=== PATIENT | female | born 1930 | race Caucasian/White ===

== ENCOUNTER 2016-05-16 22:47 | Observation (INO) | payer MEDICARE, OTHER ==
[2016-05-16 23:55] LABS: Basophils # (A) 0.2 k/uL (0-0.2); Basophils % (A) 2 %; CHCM 33.2; Eosinophils % (A) 0 %; HCT 42.4 % (34.0-46.0); HDW 2.15; Luc % (Auto) 1; Lymphocytes % (A) 12 %; MCH 29.9 pg (25.0-35.0); Monocytes # (A) 0.7 k/uL (0-1.0); Monocytes % (A) 9 %; Neutrophils # (A) 6.4 k/uL (1.3-7.7); Neutrophils % (A) 76 %; RBC 4.66 m/uL (3.80-5.40); RDW 13.7 % (11.5-15.5); WBC 8.4 k/uL (3.8-10.6); WBC (Perox) 8.23
[2016-05-17 00:05] LABS: ALT 29 U/L (9-52); AST 18 U/L (14-36); Alkaline Phosphatase 54 U/L (38-126); Anion Gap 11 mmol/L; Blood Urea Nitrogen 15 mg/dL (7-17); Calcium 9.9 mg/dL (8.4-10.2); Carbon Dioxide 32 mmol/L (22-30); Chloride 99 mmol/L (98-107); Glucose 124 mg/dL (74-99); Non-African American GFR(MDRD) >60 (>60 ml/min/1.73 sqM); Potassium 4.2 mmol/L (3.5-5.1); Sodium 142 mmol/L (137-145); Total Bilirubin 0.5 mg/dL (0.2-1.3); Total Protein 7.5 g/dL (6.3-8.2)
[2016-05-17] MEDS ORDERED: PANTOPRAZOLE 40 MG/10 ML VIAL IVP STA (00:07)
[2016-05-17] MEDS ORDERED: ONDANSETRON 4 MG/2 ML VIAL IVP STA (00:07)
[2016-05-17 00:08] LABS: MCV 90.8 fL (80.0-100.0)
[2016-05-17] MEDS ORDERED: SODIUM CHLORIDE 0.9% 1,000 ML IV STA ×2 (00:14→00:17)
[2016-05-17] MEDS ORDERED: SODIUM CHLORIDE 0.9% 1,000 ML IV ONE (00:26)
--- NOTE | 2016-05-17 00:26 | ED ---
General Adult HPI - General Chief complaint: GI Bleed Stated complaint: Vomiting Time Seen by Provider: 05/16/16 23:43 Source: EMS, RN notes reviewed, old records reviewed Mode of arrival: EMS Limitations: no limitations - History of Present Illness Initial comments: This is an 85-year-old female the ER for evaluation. Patient has a for evaluation of upper GI bleeding coffee-ground emesis. Severe coffee-ground emesis, retching, weakness. Patient does have history of exact similar symptoms in the past, currently not on any blood thinning medication. Patient does refuse transfusion secondary to blood counts. - Related Data Home Medications Medication Instructions Recorded Confirmed Albuterol Nebulized [Ventolin 2.5 mg INHALATION RT-Q6H PRN 01/04/16 05/16/16 Nebulized] Pravastatin Sodium [Pravachol] 20 mg PO HS 01/04/16 05/16/16 Sennosides [Senna] 17.2 mg PO HS 01/04/16 05/16/16 Carbidopa/Levodopa/Entacapone 1 tab PO BID 04/08/16 05/16/16 [Hghlxlubt-Zhenmeng-Icbl 200 mg] Ensure 1 can PO DAILY 04/08/16 05/16/16 HYDROcodone/APAP 7.5-325MG [[place] 1 tab PO Q8H PRN 04/08/16 05/16/16 7.5-325] Lisinopril [Zestril] 10 mg PO DAILY 05/16/16 05/16/16 Phenergan 25mg/Ml 12.5 mg IM Q6H PRN 05/16/16 05/16/16 Previous Rx's Medication Instructions Recorded Ferrous Sulfate [Feosol] 325 mg PO BID #60 tab 01/28/16 Citalopram Hydrobromide [CeleXA] 10 mg PO QAM tab 04/10/16 Diazepam [Valium] 7.5 mg PO HS #20 tab 04/10/16 Pantoprazole [Protonix] 40 mg PO AC-BID tablet. 04/10/16 Allergies Allergy/AdvReac Type Severity Reaction Status Date / Time baclofen Allergy Unknown Verified 05/16/16 22:50 aspirin AdvReac Unknown Verified 05/16/16 22:50 Review of Systems ROS Statement: Those systems with pertinent positive or pertinent negative responses have been documented in the HPI. ROS Other: All systems not noted in ROS Statement are negative. Past Medical History Past Medical History: CVA/TIA, GERD/Reflux, GI Bleed, Hyperlipidemia, Hypertension, Osteoarthritis (OA) Additional Past Medical History / Comment(s): Pt recently admitted 01/05/16 with GI bleed, past GI bleed 2006, PUD, hiatal hernia, cerebral palsy,MACULAR DEGENERATION bilaterally, TIA, URINARY INCONT-WEARS A BRIEF, dysphagia IF HURRIED . CONSTIPATION, generalized weakness, current L lower leg fracture-has immobilizer on. History of Any Multi-Drug Resistant Organisms: None Reported Past Surgical History: Orthopedic Surgery Additional Past Surgical History / Comment(s): EGD/COLONOSCOPY, PAST MEDICAL HX STATED HEART CATH-PT DID'NT RECALL THIS, BRAIN SX R/T CEREBAL PALSEY" Past Anesthesia/Blood Transfusion Reactions: No Reported Reaction Past Psychological History: Anxiety, Depression Additional Psychological History / Comment(s): P resides at [facility]. She states she is mostly in bed and occasionally is assisted into a chair. She needs assist with all ADLs. She has dysphagia if she is hurried while eating. She is on a regular diet and needs a straw and lid with liquids. Smoking Status: Never smoker Past Alcohol Use History: None Reported Past Drug Use History: None Reported - Past Family History Mother Additional Family Medical History / Comment(s): MOTHER AT AGE 36 FROM TB Father Family Medical History: Dementia Brother(s) Family Medical History: Dementia General Exam Limitations: no limitations General appearance: alert, in no apparent distress Head exam: Present: atraumatic, normocephalic, normal inspection Eye exam: Present: normal appearance, PERRL, EOMI. Absent: scleral icterus, conjunctival injection, periorbital swelling ENT exam: Present: normal exam, mucous membranes moist Neck exam: Present: normal inspection. Absent: tenderness, meningismus, lymphadenopathy Respiratory exam: Present: normal lung sounds bilaterally. Absent: respiratory distress, wheezes, rales, rhonchi, stridor Cardiovascular Exam: Present: normal rhythm, tachycardia, normal heart sounds. Absent: systolic murmur, diastolic murmur, rubs, gallop, clicks GI/Abdominal exam: Present: soft, normal bowel sounds. Absent: distended, tenderness, guarding, rebound, rigid Rectal exam: Present: heme (+) stool, black stool Extremities exam: Present: normal inspection, full ROM, normal capillary refill. Absent: tenderness, pedal edema, joint swelling, calf tenderness Back exam: Present: normal inspection Neurological exam: Present: alert, oriented X3, CN II-XII intact Psychiatric exam: Present: normal affect, normal mood Skin exam: Present: warm, dry, intact, normal color. Absent: rash Course Vital Signs 05/16/16 22:49 Temperature 98.4 F Pulse Rate 111 H Respiratory 18 Rate Blood Pressure 159/96 O2 Sat by Pulse 93 L Oximetry EKG Findings - EKG Comments: EKG Findings:: EKG shows sinus tachycardia rate 121, WV 140, QRS 78, QTC 460 Medical Decision Making - Medical Decision Making 85 female here for reevaluation [place], history of upper GI bleed. Patient related a with coffee-ground emesis, weakness, elevated heart rate. Patient will be admitted for evaluation by GI, patient is no transfusion secondary to muslim preferences. - Lab Data Result diagrams: 05/16/16 23:10 05/16/16 23:10 Lab Results 05/16/16 05/16/16 05/16/16 Range/Units 23:10 23:10 23:10 WBC 8.4 (3.8-10.6) k/uL RBC 4.66 (3.80-5.40) m/uL Hgb 14.0 D (11.4-16.0) gm/dL Hct 42.4 (34.0-46.0) % MCV 90.8 D (80.0-100.0) fL MCH 29.9 (25.0-35.0) pg MCHC 33.0 (31.0-37.0) g/dL RDW 13.7 (11.5-15.5) % Plt Count 278 (150-450) k/uL Neutrophils % 76 % Lymphocytes % 12 % Monocytes % 9 % Eosinophils % 0 % Basophils % 2 % Neutrophils # 6.4 (1.3-7.7) k/uL Lymphocytes # 1.0 (1.0-4.8) k/uL Monocytes # 0.7 (0-1.0) k/uL Eosinophils # 0.0 (0-0.7) k/uL Basophils # 0.2 (0-0.2) k/uL APTT 22.2 (22.0-30.0) sec Sodium 142 (137-145) mmol/L Potassium 4.2 (3.5-5.1) mmol/L Chloride 99 (98-107) mmol/L Carbon Dioxide 32 H (22-30) mmol/L Anion Gap 11 mmol/L BUN 15 (7-17) mg/dL Creatinine 0.57 (0.52-1.04) mg/dL Est GFR (MDRD) Af Amer >60 (>60 ml/min/1.73 sqM) Est GFR (MDRD) Non-Af >60 (>60 ml/min/1.73 sqM) Glucose 124 H (74-99) mg/dL Calcium 9.9 (8.4-10.2) mg/dL Total Bilirubin 0.5 (0.2-1.3) mg/dL AST 18 (14-36) U/L ALT 29 (9-52) U/L Alkaline Phosphatase 54 (38-126) U/L Total Protein 7.5 (6.3-8.2) g/dL Albumin 4.3 (3.5-5.0) g/dL Critical Care Time Critical Care Time: Yes Total Critical Care Time: 31 Disposition Clinical Impression: Upper GI bleed, Coffee ground emesis, Anemia, Gastritis Disposition: ADMITTED IP TO THIS [facility] Condition: Critical Referrals: Jaron Carlos MD [Primary Care Provider] - 1-2 days
[2016-05-17] MEDS ORDERED: SODIUM CHLORIDE 0.9% 500 ML IV STA (00:28)
[2016-05-17] MEDS ORDERED: ONDANSETRON 4 MG/2 ML VIAL IVP PRN (00:28)
[2016-05-17 00:30] LABS: Creatine Kinase 20 U/L (30-135)
[2016-05-17 00:43] LABS: Creatine Kinase MB <0.2 ng/mL (0.0-2.4); Troponin I <0.012 ng/mL (0.000-0.034)
[2016-05-17 08:09] VITALS: RESP 16
[2016-05-17] MEDS ORDERED: PANTOPRAZOLE 40 MG/10 ML VIAL IVP SCH (09:00)
--- NOTE | 2016-05-17 09:48 | P.CONS ---
History of Present Illness - Reason for Consult Consult date: 05/17/16 Upper GI bleed Requesting physician: Becca Corbin - History of Present Illness 85-year-old female [employer] with a history of cerebral palsy resident at retirement, hyperlipidemia, hypertension, macular degeneration, large hiatal hernia, anxiety, depression, CVA, and GERD. Patient requested for coffee -ground emesis. She is known to the GI service and was evaluated January 2016 for coffee-ground emesis. CT abdomen at that time reported large hiatal hernia. She underwent EGD evaluation in January 2016 with findings of gastritis esophagitis and large hiatal hernia no evidence of peptic ulcer disease. Admitted with recurrence of coffee ground emesis after eating a meal. Receiving reports no episodes of hematemesis, hematochezia, or melena since admission. Denies abdominal pain. Colonoscopy many years ago to her memory was normal. Admission hemoglobin 14.0. Platelet 278. BUN 15. Creatinine 0.5. Review of Systems All systems: negative (See HPI) Past Medical History Past Medical History: CVA/TIA, GERD/Reflux, GI Bleed, Hyperlipidemia, Hypertension, Osteoarthritis (OA) Additional Past Medical History / Comment(s): Pt recently admitted 01/05/16 with GI bleed, past GI bleed 2006, PUD, hiatal hernia, cerebral palsy,MACULAR DEGENERATION bilaterally, TIA, URINARY INCONT-WEARS A BRIEF, dysphagia IF HURRIED . CONSTIPATION, generalized weakness, current L lower leg fracture. History of Any Multi-Drug Resistant Organisms: None Reported Past Surgical History: Orthopedic Surgery Additional Past Surgical History / Comment(s): EGD/COLONOSCOPY, PAST MEDICAL HX STATED HEART CATH-PT DID'NT RECALL THIS, BRAIN SX R/T CEREBAL PALSEY" Past Anesthesia/Blood Transfusion Reactions: No Reported Reaction Past Psychological History: Anxiety, Depression Additional Psychological History / Comment(s): P resides at [facility]. She states she is mostly in bed and occasionally is assisted into a chair. She needs assist with all ADLs. She has dysphagia if she is hurried while eating. She is on a regular diet and needs a straw and lid with liquids. Smoking Status: Never smoker Past Alcohol Use History: None Reported Past Drug Use History: None Reported - Past Family History Mother Additional Family Medical History / Comment(s): MOTHER AT AGE 36 FROM TB Father Family Medical History: Dementia Brother(s) Family Medical History: Dementia Medications and Allergies Home Medications Medication Instructions Recorded Confirmed Type Albuterol Nebulized [Ventolin 2.5 mg INHALATION RT-Q8H PRN 01/04/16 05/17/16 History Nebulized] Pravastatin Sodium [Pravachol] 20 mg PO HS 01/04/16 05/17/16 History Sennosides [Senna] 17.2 mg PO HS 01/04/16 05/17/16 History Carbidopa/Levodopa/Entacapone 1 tab PO BID 04/08/16 05/17/16 History [Kwhotzpal-Kjscqolx-Qckd 200 mg] Ensure 1 can PO BID-W/MEALS 04/08/16 05/17/16 History HYDROcodone/APAP 7.5-325MG [[place] 1 tab PO Q8H PRN 04/08/16 05/17/16 History 7.5-325] Lisinopril [Zestril] 10 mg PO DAILY 05/16/16 05/17/16 History Phenergan 25mg/Ml 12.5 mg IM Q6H PRN 05/16/16 05/17/16 History Allergies Allergy/AdvReac Type Severity Reaction Status Date / Time baclofen Allergy Unknown Verified 05/17/16 09:03 aspirin AdvReac Unknown Verified 05/17/16 09:03 Physical Exam Vitals: Vital Signs Temp Pulse Pulse Resp BP BP Pulse Ox 05/17/16 07:00 99 F 93 16 96/52 86 L 05/17/16 02:44 98.7 F 92 20 124/80 95 05/17/16 01:34 98.2 F 90 18 113/67 92 L 05/17/16 00:28 107 H 18 154/88 94 L Intake and Output 05/16/16 05/17/16 05/17/16 22:59 06:59 14:59 Intake Total 400 Balance 400 Intake: IV 400 Sodium Chloride 0.9% 1, 400 000 ml @ 100 mls/hr IV . Q10H ONE Rx#:[id number] Other: Voiding Method Bedpan Diaper General appearance: The patient is alert, oriented, in no acute distress. HET: Head is normocephalic and atraumatic. Pupils are equal and reactive. Oropharynx is clear without lesions. Neck: Supple without lymphadenopathy. Trachea midline. Heart: S1 S2. Regular rate and rhythm. Lungs: No crackles or wheezes are heard. Abdomen: Soft, nontender, nondistended with bowel sounds. No peritoneal signs. No palpable organomegaly or masses. Extremities: Normal skin color and turgor. No cyanosis, rash, ulceration, clubbing, or edema. Radial and pedal pulses are 2/4 bilaterally. Neurological: No focal deficits. Strength and sensation are grossly intact. Results CBC & Chem 7: 05/16/16 23:10 05/16/16 23:10 Assessment and Plan (1) Coffee ground emesis Narrative/Plan: 85-year-old female with a history of large hiatal hernia receiving oral iron therapy presents with acute coffee-ground emesis status post EGD January 2016 with no evidence of active upper GI bleed esophagitis and large hiatal hernia GE junction located at 33 cm. Possible gastritis esophagitis Miranda-Biggs tear or Darryl erosions. Peptic ulcer disease felt to be less likely but cannot be excluded. Status: Acute (2) Upper GI bleed Status: Acute (3) Hiatal hernia Status: Chronic Plan: Recommendations: 1. Admission hemoglobin was 14.0 we'll await repeat CBC today. Continue clear liquids and GI prophylaxis. Will consider EGD evaluation based on her clinical course but for now continue to observe with conservative measures. Thank you for this kind referral and the opportunity to participate in the care of your patient. This consultation was discussed with Dr. Perry. The impression and plan of care have been directed as dictated.
[2016-05-17] MEDS ORDERED: ALBUTEROL NEBULIZED 2.5 MG/3 ML INHALATION PRN (10:04)
[2016-05-17] MEDS ORDERED: PROMETHAZINE INJ 25 MG/ML 1 ML VIAL IM PRN (10:04)
[2016-05-17] MEDS ORDERED: ENTACAPONE 200 MG TAB PO SCH ×2 (10:15→11:27)
[2016-05-17] MEDS ORDERED: CARBIDOPA-LEVODOPA ER 50-200MG 1 EACH TABLET.ER PO SCH (10:15)
--- NOTE | 2016-05-17 10:40 | XR ---
EXAMINATION TYPE: XR chest 1V DATE OF EXAM: 05/17/2016 10:35 AM COMPARISON: Prior chest x-ray 26 February 2015 second of April 2016 HISTORY: Cough and congestion TECHNIQUE: Single frontal view of the chest is obtained. FINDINGS: Retrocardiac density with central lucency compatible with hiatal hernia. Patient is rotate d. Nodular density in the apex on the right is not significantly changed and is a calcified granuloma . Heart size is accentuated. No pneumothorax or pleural effusion. There are overlying cardiac leads. Minimal patchy basilar density is noted. There is apical pleural thickening. IMPRESSION: Probable old granulomatous disease. Accentuation of heart size may be due to rotation. T here may be basilar atelectasis, hiatal hernia. Correlate to exclude pneumonia and follow-up as indic ated.
--- NOTE | 2016-05-17 10:55 | DS ---
DATE OF ADMISSION: 05/17/2016 DATE OF DISCHARGE: Patient is an 85-year-old [employer] and history of cerebral palsy, a resident of [facility] with chronic contractures, came in with coffee-ground emesis, about a couple times yesterday and patient does have multiple other medical problems. Apparently a CT of the abdomen showed large hiatal hernia. Patient underwent EGD evaluation on January 2016, found to have esophagitis and gastritis and emesis resolved at this point of time. Will start her back on the diet and if she is able to tolerate, later today patient will be discharged back to [facility]. Her hemoglobin remains stable at 14 and patient does not have any hematochezia, melena. Patient denied any fever or chills. Patient denied any cough, runny nose. REVIEW OF SYSTEMS: CARDIOVASCULAR: No chest pain, no orthopnea, no PND, no palpitations. PULMONARY: Denied any shortness of breath. No cough or hemoptysis. GASTROINTESTINAL: As described in HPI. Patient denied any abdominal pain at this point of time. Apparently, she had epigastric abdominal pain yesterday. NEUROLOGIC: No headaches, no weakness, no numbness. PAST MEDICAL HISTORY: Significant for CVA, TIA, gastroesophageal reflux disease, GI bleed, hyperlipidemia, hypertension, osteoarthritis and patient had a recent admission in the month of January for GI bleed, Orthopedic surgery, anxiety, depression and cerebral. SOCIAL HISTORY: Denied any smoking, alcohol abuse or any drug abuse. FAMILY HISTORY: Father had dementia, brother had dementia. Home medications include: 1. Albuterol. 2. Pravastatin. 3. Senokot. 4. Carbidopa levodopa. 5. Hydrocodone. 6. Acetaminophen. 7. Lisinopril. 8. Phenergan. Patient is probably on carbidopa levodopa for contractures maybe. PHYSICAL EXAMINATION: VITAL SIGNS: Temperature 99.0, pulse of 93, respiratory rate of 16, blood pressure is 96/52, because of which lisinopril will be discontinued. Saturating at 86% on room air, will recheck that. I believe this is not a real saturations, so will to recheck the saturations. There were 95% on room air. GENERAL EXAMINATION: Patient is alert and oriented alert x2 to 3. Patient does have chronic contractures. HEENT: Pupils are round and equally reacting to light. EOMI. No scleral icterus. No conjunctival pallor. Normocephalic, atraumatic. No pharyngeal erythema. No thyromegaly. CARDIOVASCULAR: S1 and S2 present. No murmurs, rubs, or gallops. PULMONARY: Chest is clear to auscultation, no wheezing or crackles. ABDOMEN: Soft, nontender, nondistended, normoactive bowel sounds. No palpable organomegaly. MUSCULOSKELETAL: No joint swelling or deformity. EXTREMITIES: No cyanosis, clubbing, or pedal edema. NEUROLOGICAL: Gross neurological examination did not reveal any focal deficits. SKIN: No rashes. LABORATORY DATA: CBC, CMP, no significant abnormality was appreciated except for mildly elevated bicarbonate of 32. ASSESSMENT AND PLAN: 1. Possible upper gastrointestinal bleed secondary to hiatal hernia and coffee-ground emesis secondary to that. Patient's symptoms already improved. Will watch her a few more hours and start her back on diet and Gastroenterology evaluated the patient and they not recommending any further intervention or any procedure at this point of time. 2. History of cerebrovascular accident. 3. Hypertension. 4. Hyperlipidemia. 5. Chronic contractures secondary to cerebral palsy. Not sure why patient is on carbidopa levodopa, I did not see any documented Parkinson's even in the previous dictations. PLAN: Continue with present medications. Advance the diet, possibility of discharge tomorrow. Patient will follow with Dr. Carlos in the [facility]. Activity as per the facility. Cardiac diet. Patient's lisinopril was discontinued. Please refer to my depart summary for the details of discharge medications. Lisinopril was discontinued because of her low blood pressure. Patient was started on Maalox.
[2016-05-17 14:52] VITALS: BP 122/70; PULSE 82; TEMP 97.5
[2016-05-17] MEDS ORDERED: NON-FORMULARY DRUG (Ensure 1 CAN) PO SCH (17:30)
[2016-05-17] MEDS ORDERED: FERROUS SULFATE 325 MG TAB PO SCH (17:30)
[2016-05-17] MEDS ORDERED: PRAVASTATIN SODIUM 20 MG TAB PO SCH (21:00)
[2016-05-17] MEDS ORDERED: SENNOSIDES 8.6 MG TAB PO SCH (21:00)
--- NOTE | 2016-06-05 14:19 | HP ---
DATE OF ADMISSION: 05/17/2016 Patient is admitted and discharged on the same day. Please refer to my dictation of discharge summary for further details of H&P. That dictation is both H&P and discharge summary. CONRADO
== END 2016-05-17 16:10 ==
LOC: EC 22:47 → 5MS5E 05-17 00:24 → INTOOBSV 05-17 00:24
PROVIDERS: ADMIT Hospitalist; ATTEND Hospitalist
DX: K44.9 Diaphragmatic hernia without obstruction or gangrene (principal); K92.2 Gastrointestinal hemorrhage, unspecified; K92.0 Hematemesis; K21.0 Gastro-esophageal reflux disease with esophagitis; D50.9 Iron deficiency anemia, unspecified; E78.5 Hyperlipidemia, unspecified; G80.9 Cerebral palsy, unspecified; H35.30 Unspecified macular degeneration; I10 Essential (primary) hypertension; M19.90 Unspecified osteoarthritis, unspecified site; Z86.73 Personal history of transient ischemic attack (TIA), and cerebral infarction without residual deficits; Z87.11 Personal history of peptic ulcer disease
CPT/HCPCS: 36415; 93005; 80053; 82550; 82553; 84484; 85025; 85730; 71010; 99291; 96365; 96375 ×2; G0378; J2405; J0696; C9113

== ENCOUNTER 2016-05-21 21:18 | Observation (INO) | payer MEDICARE, OTHER ==
[2016-05-21] MEDS ORDERED: ONDANSETRON 4 MG/2 ML VIAL IVP STA (21:24)
[2016-05-21] MEDS ORDERED: PANTOPRAZOLE 40 MG/10 ML VIAL IVP STA (21:24)
[2016-05-21] MEDS ORDERED: SODIUM CHLORIDE 0.9% 1,000 ML IV STA (21:24)
[2016-05-21 21:58] LABS: Basophils % (A) 0 %; CH 30.1; CHCM 33.7; Eosinophils # (A) 0.1 k/uL (0-0.7); Eosinophils % (A) 1 %; HCT 39.5 % (34.0-46.0); HDW 2.26; Luc # (Auto) 0.07; Luc % (Auto) 1; Lymphocytes # (A) 1.2 k/uL (1.0-4.8); Lymphocytes % (A) 13 %; MCH 29.6 pg (25.0-35.0); MCV 89.6 fL (80.0-100.0); Mean Platelet Volume 8.1; Monocytes # (A) 0.4 k/uL (0-1.0); Monocytes % (A) 4 %; Neutrophils # (A) 7.1 k/uL (1.3-7.7); Neutrophils % (A) 80 %; RBC 4.41 m/uL (3.80-5.40); RDW 13.5 % (11.5-15.5); WBC 8.9 k/uL (3.8-10.6); WBC (Perox) 9.49
[2016-05-21 22:20] LABS: Amylase 73 U/L (30-110); Anion Gap 13 mmol/L; Calcium 9.4 mg/dL (8.4-10.2); Carbon Dioxide 27 mmol/L (22-30); Chloride 103 mmol/L (98-107); Glucose 128 mg/dL (74-99); Non-African American GFR(MDRD) >60 (>60 ml/min/1.73 sqM); Sodium 143 mmol/L (137-145); Total Bilirubin 0.8 mg/dL (0.2-1.3)
[2016-05-21 22:23] LABS: ALT 29 U/L (9-52); AST 20 U/L (14-36); Blood Urea Nitrogen 12 mg/dL (7-17); Potassium 4.2 mmol/L (3.5-5.1)
[2016-05-21 22:24] LABS: Alkaline Phosphatase 48 U/L (38-126)
--- NOTE | 2016-05-21 22:35 | XR ---
EXAMINATION TYPE: XR chest 2V DATE OF EXAM: 05/21/2016 10:25 PM COMPARISON: 05/17/2016 HISTORY: Abdominal pain and vomiting TECHNIQUE: Frontal and lateral views of the chest are obtained. FINDINGS: There is no heart failure nor confluent pneumonic infiltrate. Costophrenic angles are bo r. Thoracic aorta is atheromatous. There is significant arthritic disease in the right shoulder. IMPRESSION: No active cardiopulmonary disease. No change. Atheromatous aorta.
--- NOTE | 2016-05-21 22:37 | XR ---
EXAMINATION TYPE: XR KUB DATE OF EXAM: 05/21/2016 10:25 PM COMPARISON: 01/04/2016 HISTORY: Abdominal pain TECHNIQUE: Single view FINDINGS: There is no sign of intestinal obstruction or pneumoperitoneum. Fecal pattern is normal. Th ere is no sign of a mass. There is mild lumbar dextroscoliosis. There is a 2 cm curvilinear calcifica tion over the left mid abdomen. IMPRESSION: Nonacute abdomen. There is calcification over the left kidney related to a renal cyst wit h wall calcification demonstrated on old CT scan of 01/04/2016. No change.
[2016-05-22] MEDS ORDERED: METOCLOPRAMIDE 5 MG/ML 2 ML VIAL IVP STA ×2 (00:05→00:06)
[2016-05-22] MEDS ORDERED: NALOXONE 0.4 MG/ML 1 ML VIAL IV PRN (00:10)
[2016-05-22] MEDS ORDERED: ACETAMINOPHEN TAB 325 MG TAB PO PRN (00:10)
[2016-05-22] MEDS ORDERED: ONDANSETRON 4 MG/2 ML VIAL IVP PRN (00:10)
[2016-05-22] MEDS ORDERED: MORPHINE SULFATE 4 MG/ML SYRINGE IV PRN (00:10)
--- NOTE | 2016-05-22 00:10 | ED ---
GI Bleed HPI - General Chief complaint: GI Bleed Stated complaint: NAUSEA Time Seen by Provider: 05/21/16 21:19 Source: patient Mode of arrival: EMS Limitations: no limitations - History of Present Illness Initial comments: She is from one of the local senior living has a history of anemia and gastritis and esophagitis as well as cerebral palsy she came in with the coffee-ground emesis EMS as a matter of fact had some sample in the bag when she arrived been nauseous and has been throwing up coffee-ground material. She denies any shortness of breath no chest pain no fever no chills no cough on his review of systems are negative - Related Data Home Medications Medication Instructions Recorded Confirmed Albuterol Nebulized [Ventolin 2.5 mg INHALATION RT-Q8H PRN 01/04/16 05/17/16 Nebulized] Pravastatin Sodium [Pravachol] 20 mg PO HS 01/04/16 05/17/16 Sennosides [Senna] 17.2 mg PO HS 01/04/16 05/17/16 Carbidopa/Levodopa/Entacapone 1 tab PO BID 04/08/16 05/17/16 [Wclrtiqba-Qtzcjekd-Faqj 200 mg] Ensure 1 can PO BID-W/MEALS 04/08/16 05/17/16 HYDROcodone/APAP 7.5-325MG [[place] 1 tab PO Q8H PRN 04/08/16 05/17/16 7.5-325] Phenergan 25mg/Ml 12.5 mg IM Q6H PRN 05/16/16 05/17/16 Previous Rx's Medication Instructions Recorded Ferrous Sulfate [Feosol] 325 mg PO BID #60 tab 01/28/16 Citalopram Hydrobromide [CeleXA] 10 mg PO QAM tab 04/10/16 Diazepam [Valium] 7.5 mg PO HS #20 tab 04/10/16 Pantoprazole [Protonix] 40 mg PO AC-BID tablet. 04/10/16 Mag Hydrox/Al Hydrox/Simeth 30 ml PO AC-TID #30 cup 05/17/16 [Maalox] Allergies Allergy/AdvReac Type Severity Reaction Status Date / Time baclofen Allergy Unknown Verified 05/21/16 21:36 aspirin AdvReac Unknown Verified 01/15/17 21:36 Review of Systems ROS Statement: Those systems with pertinent positive or pertinent negative responses have been documented in the HPI. ROS Other: All systems not noted in ROS Statement are negative. Past Medical History Past Medical History: CVA/TIA, GERD/Reflux, GI Bleed, Hyperlipidemia, Hypertension, Osteoarthritis (OA) Additional Past Medical History / Comment(s): Pt recently admitted 01/05/16 with GI bleed, past GI bleed 2006, PUD, hiatal hernia, cerebral palsy,MACULAR DEGENERATION bilaterally, TIA, URINARY INCONT-WEARS A BRIEF, dysphagia IF HURRIED . CONSTIPATION, generalized weakness, current L lower leg fracture. History of Any Multi-Drug Resistant Organisms: None Reported Past Surgical History: Orthopedic Surgery Additional Past Surgical History / Comment(s): EGD/COLONOSCOPY, PAST MEDICAL HX STATED HEART CATH-PT DID'NT RECALL THIS, BRAIN SX R/T CEREBAL PALSEY" Past Anesthesia/Blood Transfusion Reactions: No Reported Reaction Past Psychological History: Anxiety, Depression Additional Psychological History / Comment(s): P resides at [facility]. She states she is mostly in bed and occasionally is assisted into a chair. She needs assist with all ADLs. She has dysphagia if she is hurried while eating. She is on a regular diet and needs a straw and lid with liquids. Smoking Status: Never smoker Past Alcohol Use History: None Reported Past Drug Use History: None Reported - Past Family History Mother Additional Family Medical History / Comment(s): MOTHER AT AGE 36 FROM TB Father Family Medical History: Dementia Brother(s) Family Medical History: Dementia General Exam - General Exam Comments Initial Comments: General: The patient is awake and alert, in no distress, and does not appear acutely ill. ACS is 50 Skin: Skin is warm and dry and no rashes or lesions are noted. Eye: Pupils are equal, round and reactive to light, extra-ocular movements are intact; there is normal conjunctiva bilaterally. Ears, nose, mouth and throat: There are moist mucous membranes and no oral lesions. Neck: The neck is supple, there is no tenderness Cardiovascular: There is a regular rate and rhythm. No murmur, rub or gallop is appreciated. Respiratory: To auscultation bilateral, no wheezing no rhonchi no distress respiratory sidhu noticed Gastrointestinal: Mildly tender in epigastric area, positive bowel sounds no guarding no rebounds Back: There is no tenderness to palpation in the midline. There is no obvious deformity. Musculoskeletal: Normal ROM, no tenderness, There is no pedal edema. There is no calf tenderness or swelling. No cords were appreciated. Neurological: CN II-XII intact, Cranial nerves III through XII are intact. There are no obvious motor or sensory deficits. Coordination appears grossly intact. Speech is normal. Psychiatric: Cooperative, appropriate mood & affect, normal judgment. Limitations: no limitations Course Vital Signs 05/21/16 05/21/16 05/21/16 21:20 23:04 23:30 Temperature 99.0 F 99.0 F Pulse Rate 104 H 111 H 104 H Respiratory 18 18 16 Rate Blood Pressure 183/94 169/100 158/92 O2 Sat by Pulse 100 97 97 Oximetry Medical Decision Making - Lab Data Result diagrams: 05/21/16 21:45 05/21/16 21:45 Lab Results 05/21/16 05/21/16 Range/Units 21:45 21:45 WBC 8.9 (3.8-10.6) k/uL RBC 4.41 (3.80-5.40) m/uL Hgb 13.0 (11.4-16.0) gm/dL Hct 39.5 (34.0-46.0) % MCV 89.6 (80.0-100.0) fL MCH 29.6 (25.0-35.0) pg MCHC 33.0 (31.0-37.0) g/dL RDW 13.5 (11.5-15.5) % Plt Count 264 (150-450) k/uL Neutrophils % 80 % Lymphocytes % 13 % Monocytes % 4 % Eosinophils % 1 % Basophils % 0 % Neutrophils # 7.1 (1.3-7.7) k/uL Lymphocytes # 1.2 (1.0-4.8) k/uL Monocytes # 0.4 (0-1.0) k/uL Eosinophils # 0.1 (0-0.7) k/uL Basophils # 0.0 (0-0.2) k/uL Sodium 143 (137-145) mmol/L Potassium 4.2 (3.5-5.1) mmol/L Chloride 103 (98-107) mmol/L Carbon Dioxide 27 (22-30) mmol/L Anion Gap 13 mmol/L BUN 12 (7-17) mg/dL Creatinine 0.40 L (0.52-1.04) mg/dL Est GFR (MDRD) Af Amer >60 (>60 ml/min/1.73 sqM) Est GFR (MDRD) Non-Af >60 (>60 ml/min/1.73 sqM) Glucose 128 H (74-99) mg/dL Calcium 9.4 (8.4-10.2) mg/dL Total Bilirubin 0.8 (0.2-1.3) mg/dL AST 20 (14-36) U/L ALT 29 (9-52) U/L Alkaline Phosphatase 48 (38-126) U/L Total Protein 7.0 (6.3-8.2) g/dL Albumin 4.1 (3.5-5.0) g/dL Amylase 73 (30-110) U/L Lipase 70 (23-300) U/L Disposition Clinical Impression: GI bleed, Coffee ground emesis Disposition: ADMITTED IP TO THIS HOSP
[2016-05-22] MEDS ORDERED: ALBUTEROL NEBULIZED 2.5 MG/3 ML INHALATION PRN (00:16)
[2016-05-22] MEDS ORDERED: HYDROcodone/APAP 7.5-325MG 1 EACH TAB PO PRN (00:16)
[2016-05-22] MEDS ORDERED: PROMETHAZINE INJ 25 MG/ML 1 ML VIAL IM PRN (00:16)
[2016-05-22] MEDS: SODIUM CHLORIDE 0.9% 1,000 ML IV SCH ×2 (01:09→14:02)
[2016-05-22 01:34] VITALS: BMI 24.2
[2016-05-22] MEDS ORDERED: NON-FORMULARY DRUG (Ensure 1 CAN) PO SCH (07:30)
[2016-05-22] MEDS: PANTOPRAZOLE 40 MG/10 ML VIAL IVP SCH ×2 (07:47→20:41)
[2016-05-22] MEDS: CITALOPRAM HYDROBROMIDE 10 MG TAB PO SCH (07:47)
[2016-05-22] MEDS: CARBIDOPA-LEVODOPA ER 50-200MG 1 EACH TABLET.ER PO SCH ×2 (07:47→20:40)
[2016-05-22] MEDS: ENTACAPONE 200 MG TAB PO SCH ×2 (07:47→20:40)
[2016-05-22] MEDS: FERROUS SULFATE 325 MG TAB PO SCH ×2 (07:47→20:41)
[2016-05-22] MEDS: MAG HYDROX/AL HYDROX/SIMETH 30 ML CUP PO SCH ×3 (07:47→18:36)
[2016-05-22] MEDS ORDERED: ENTACAPONE PO SCH (09:00)
[2016-05-22] MEDS ORDERED: [UNRECOGNIZED DRUG - OTHER] PO SCH (09:00)
[2016-05-22] MEDS ORDERED: LEVODOPA PO SCH (09:00)
[2016-05-22] MEDS ORDERED: CARBIDOPA PO SCH (09:00)
--- NOTE | 2016-05-22 13:02 | CONS ---
DATE OF CONSULTATION: 05/22/2016 REASON FOR CONSULTATION: Acute upper GI bleed. HISTORY OF PRESENT ILLNESS: The patient is an 85-year-old white female with history of cerebral palsy, presently resides in a long-term, was sent to the emergency room after having coffee-ground emesis yesterday. The patient apparently has been nauseated for the last 2 days and had a couple of episodes of coffee-ground emesis, but since being in the hospital according to the nursing staff, did not have any further episodes of bleeding. She continues to have dry heaves. She denies any abdominal pain. She had a similar episode a week ago, came into the emergency room and was sent home. She was admitted to the hospital multiple times in the last 3 months. In January, she underwent an upper endoscopy by Dr. Perry which showed moderate-sized hiatal hernia along with a LA grade distal reflux esophagitis. Also, she was noted to have mild gastritis but no evidence of gastric outlet obstruction. Patient was subsequently started on Prilosec 20 mg twice daily. Because of her cerebral palsy, she is somewhat a poor historian but she states that overall she has been doing reasonably well until the last few days, when she started having episodes of nausea, vomiting. She report no fevers, chills, night sweats. Her past medical history is significant for history of cerebral palsy, hypertension, hyperlipidemia, GI bleed in the past, degenerative joint disease, macular degeneration. PAST SURGICAL HISTORY: EGD in January of 2016 that showed a moderate size hiatal hernia and esophagitis, history of colonoscopy in the past, associated for lower leg fracture. Medications at home include Feosol, Ventolin, Pravachol, Senna, carbidopa/levodopa, Phenergan p.r.n. , [place] p.r.n. Allergies to BACLOFEN and ASPIRIN. SOCIAL HISTORY: No smoking. No alcohol use. FAMILY HISTORY: Mother had tuberculosis. Father had dementia. REVIEW OF SYSTEMS: CARDIOPULMONARY: No chest pain. No shortness of breath. GENITOURINARY: No dysuria. No hematuria. MUSCULOSKELETAL: Unremarkable. SKIN: Unremarkable. ENDOCRINE: Unremarkable. PSYCHIATRY: Anxiety, depression. NEUROLOGY: History of cerebral palsy but patient communicating appropriately. ENT: Vision unremarkable. HEMATOLOGY: Unremarkable. ENDOCRINOLOGY: Unremarkable. On physical examination, she appears comfortable, in no apparent distress. Vitals signs are stable. Blood pressure is 152/90, pulse rate 95, temperature 98.8. HEENT: Unremarkable, conjunctivae are pink, sclerae nonicteric. Oral cavity no lesions. NECK: No JVD or lymph node enlargement. Chest was clear to auscultation. HEART: Regular rate and rhythm. Abdomen is soft, nontender, nondistended. Liver and spleen were not palpable. Bowel sounds are positive. No organomegaly. EXTREMITIES: No pedal edema. SKIN: No rashes. NEURO: She is awake, responding to questions appropriately, no focal deficits. Labs done last night in the ER, WBC 8.9, hemoglobin 13, platelets were 264. BUN 12, creatinine 0.4. Amylase and lipase are normal. IMPRESSION: This is a lady who presents to the hospital with nausea, vomiting and coffee-ground emesis for the last 2 days' duration. Since being in the hospital, did not have any further episodes of bleeding. Her hemoglobin is 13 g/dL and stable. She had an upper endoscopy. She had a couple of hospitalizations for acute upper gastrointestinal bleed and on January 20, she underwent an upper endoscopy done by Dr. Perry which showed a moderate size hiatal hernia and reflux esophagitis. The patient since has been maintained on Protonix 40 mg b.i.d. and was doing reasonably well. RECOMMENDATIONS: 1. Since the patient did not have any further episodes of bleeding, no need for repeat upper endoscopy during this hospitalization. 2. Continue with IV Protonix 40 mg q.12 hours. 3. Will start her on a clear liquid diet and advance as tolerated. 4. I will continue to follow the patient closely during the hospital stay. Thank you for this consultation.
--- NOTE | 2016-05-22 17:33 | HP ---
DATE OF ADMISSION: Patient was sent in here from [facility] after she had coffee-ground emesis. She appears to have had a couple episodes of emesis yesterday, and today morning patient had one episode, which was not coffee-ground ( ). Patient had a couple emeses which were coffee-ground. Patient, although able to give me good history, has cerebral palsy. History is a bit limited because of that. Patient denied any fever, chills. Patient denied any abdominal pain. Patient had an upper GI endoscopy which showed at that time esophagitis and gastritis and hiatal hernia. Patient was discharged on Maalox and omeprazole. Hemoglobin is 13. Gastroenterology evaluated the patient. They are not planning on repeat endoscopy. Patient is on Protonix IV b.i.d. Will monitor her today, advance the diet, and if patient is doing well, patient probably will be discharged tomorrow. Patient does have history of cerebral palsy. REVIEW OF SYSTEMS: CONSTITUTIONAL: No fever, no malaise, no fatigue. HEENT: No recent visual problems or hearing problems. Denied any sore throat. CARDIOVASCULAR: No chest pain, orthopnea, PND, no palpitations, no syncope. PULMONARY: No shortness of breath, no cough, no hemoptysis. GASTROINTESTINAL: As described in HPI. NEUROLOGICAL: No headaches, no weakness, no numbness. HEMATOLOGICAL: Denies any bleeding or petechiae. GENITOURINARY: Denies any burning micturition, frequency, or urgency. MUSCULOSKELETAL/RHEUMATOLOGICAL: Denies any joint pain, swelling, or any muscle pain. ENDOCRINE: Denies any polyuria or polydipsia. The rest of the 14 point review of systems is negative. Home medications include: 1. Albuterol. 2. Pravastatin. 3. Carbidopa levodopa. 4. Ensure. 5. Hydrocodone/acetaminophen . 6. Phenergan. 7. Ferrous sulfate. 8. Citalopram. 9. [place]. 10. Diazepam. 11. Protonix. 12. Magnesium hydroxide and simethicone combination (Maalox). ALLERGIES: BACLOFEN and ASPIRIN. Past medical history is significant for: 1. CVA. 2. TIA. 3. Gastritis. 4. Esophagitis. 5. Hiatal hernia. 6. GI bleed in the past. 7. Hyperlipidemia. 8. ( ) 9. Hypertension. 10. Depression. 11. Patient is on parkinsonian medications, maybe because of her cerebral palsy per se. There is no mention of Parkinson's in the previous history. 12. EGD. 13. Colonoscopy. 14. Cardiac catheterization in the past. 15. Several falls. SOCIAL HISTORY: Denied any smoking, alcohol abuse or any drug abuse. FAMILY HISTORY: Mother at age of 36 from tuberculosis. Father had dementia. Brother had dementia. PHYSICAL EXAMINATION: VITAL SIGNS: Temperature 99.0, pulse of 104, respiratory rate of 16. Blood pressure is 158/92. Patient's blood pressure earlier today was 90/60. Saturating at 97% on room air. GENERAL: Patient is awake, alert. Patient has some chronic contractures. HEENT: Pupils are round and equally reacting to light. EOMI. No scleral icterus. No conjunctival pallor. Normocephalic, atraumatic. No pharyngeal erythema. No thyromegaly. CARDIOVASCULAR: S1 and S2 present. No murmurs, rubs, or gallops. PULMONARY: Chest is clear to auscultation, no wheezing or crackles. ABDOMEN: Soft, nontender, nondistended, normoactive bowel sounds. No palpable organomegaly. MUSCULOSKELETAL: No joint swelling or deformity. EXTREMITIES: No cyanosis, clubbing, or pedal edema. NEUROLOGICAL: No neurological deficits. SKIN: No rashes. LABORATORY DATA: CBC, CMP essentially within normal limits with fairly normal hemoglobin of 13, but it may drop tomorrow. Liver enzymes are essentially within normal limits. ASSESSMENT AND PLAN: 1. Coffee-ground emesis secondary to gastritis or esophagitis. Patient will be on Protonix b.i.d. No further intervention is being planned by Gastroenterology. 2. History of cerebrovascular accident. 3. Hypertension. 4. Hyperlipidemia. 5. Cerebral palsy. For above-mentioned chronic medical problems, I will go ahead and continue her home medications and will monitor her for one more night. If patient does not have any nausea, vomiting, any upper or lower GI bleed, patient will be discharged tomorrow. Patient is mildly tachycardic.
[2016-05-22] MEDS ORDERED: SENNOSIDES 8.6 MG TAB PO SCH (21:00)
[2016-05-22] MEDS ORDERED: DIAZEPAM 5 MG TAB PO SCH (21:00)
[2016-05-22] MEDS ORDERED: PRAVASTATIN SODIUM 20 MG TAB PO SCH (21:00)
[2016-05-23] MEDS: SODIUM CHLORIDE 0.9% 1,000 ML IV SCH ×2 (02:09→16:47)
[2016-05-23 03:52] LABS: Appearance,Urine Cloudy (Clear); Bacteria,Urine Many /hpf; Bilirubin,Urine Negative (Negative); Glucose,Urine (UA) Negative (Negative); Ketones,Urine 1+ (Negative); Leukocyte Esterase,Urine Small (Negative); Mucus,Urine Occasional /hpf; Nitrite,Urine Negative (Negative); Particle Count 32375; Protein,Urine Trace (Negative); RBC,Urine 2 /hpf (0-5); Specific Gravity,Urine 1.015 (1.001-1.035); Squamous Epithelial Cell,Urine 16 /hpf (0-4); UA Billing (MACRO vs. MICRO) MICRO; Urobilinogen,Urine <2.0 mg/dL (<2.0); WBC,Urine 22 /hpf (0-5)
[2016-05-23] MEDS: MAG HYDROX/AL HYDROX/SIMETH 30 ML CUP PO SCH ×3 (08:06→18:08)
[2016-05-23] MEDS: CARBIDOPA-LEVODOPA ER 50-200MG 1 EACH TABLET.ER PO SCH (08:07)
[2016-05-23] MEDS: CITALOPRAM HYDROBROMIDE 10 MG TAB PO SCH (08:08)
[2016-05-23] MEDS: ENTACAPONE 200 MG TAB PO SCH (08:08)
[2016-05-23] MEDS: PANTOPRAZOLE 40 MG/10 ML VIAL IVP SCH (08:08)
[2016-05-23] MEDS: FERROUS SULFATE 325 MG TAB PO SCH (08:08)
[2016-05-23 08:23] VITALS: RESP 16
[2016-05-23 08:37] LABS: Basophils # (A) 0.1 k/uL (0-0.2); Basophils % (A) 2 %; CH 29.7; CHCM 32.3; Eosinophils % (A) 1 %; HCT 33.4 % (34.0-46.0); HGB 10.4 gm/dL (11.4-16.0); Luc % (Auto) 2; Lymphocytes # (A) 1.6 k/uL (1.0-4.8); Lymphocytes % (A) 22 %; MCH 28.9 pg (25.0-35.0); MCHC 31.3 g/dL (31.0-37.0); MCV 92.4 fL (80.0-100.0); Mean Platelet Volume 8.1; Monocytes # (A) 0.4 k/uL (0-1.0); Monocytes % (A) 6 %; Neutrophils # (A) 4.9 k/uL (1.3-7.7); Neutrophils % (A) 69 %; RBC 3.61 m/uL (3.80-5.40); RDW 13.8 % (11.5-15.5); WBC 7.1 k/uL (3.8-10.6); WBC (Perox) 7.22
[2016-05-23 09:06] LABS: ALT 25 U/L (9-52); AST 16 U/L (14-36); Alkaline Phosphatase 39 U/L (38-126); Anion Gap 6 mmol/L; Blood Urea Nitrogen 12 mg/dL (7-17); Calcium 8.7 mg/dL (8.4-10.2); Carbon Dioxide 31 mmol/L (22-30); Chloride 106 mmol/L (98-107); Glucose 86 mg/dL (74-99); Non-African American GFR(MDRD) >60 (>60 ml/min/1.73 sqM); Potassium 3.7 mmol/L (3.5-5.1); Sodium 143 mmol/L (137-145); Total Bilirubin 0.7 mg/dL (0.2-1.3); Total Protein 5.7 g/dL (6.3-8.2)
--- NOTE | 2016-05-23 12:25 | P.PN ---
Subjective Principal diagnosis: Acute upper GI bleed 85-year-old female with a history of large hiatal hernia admitted with coffee- ground emesis. EGD January 2016 no evidence of peptic ulcer disease. No recurrence of coffee-ground emesis. Bill clear liquids. Denies nausea vomiting. 1110.4. Objective - Vital Signs Vital signs: Vital Signs Temp 97.7 F 05/23/16 07:00 Pulse 69 05/23/16 07:00 Resp 16 05/23/16 07:00 BP 100/62 05/23/16 07:00 Pulse Ox 100 05/23/16 07:00 Intake & Output 05/22/16 05/23/16 05/23/16 18:59 06:59 18:59 Other: Voiding Method Diaper Diaper Diaper Incontinent Incontinent # Voids 2 1 # Emeses 1 - Exam General appearance: The patient is alert, oriented, in no acute distress. HET: Head is normocephalic and atraumatic. Pupils are equal and reactive. Oropharynx is clear without lesions. Neck: Supple without lymphadenopathy. Trachea midline. Heart: S1 S2. Regular rate and rhythm. Lungs: No crackles or wheezes are heard. Abdomen: Soft, nontender, nondistended with bowel sounds. No peritoneal signs. No palpable organomegaly or masses. Extremities: Normal skin color and turgor. No cyanosis, rash, ulceration, clubbing, or edema. Radial and pedal pulses are 2/4 bilaterally. Neurological: No focal deficits. Strength and sensation are grossly intact. - Labs CBC & Chem 7: 05/23/16 07:49 05/23/16 07:49 Labs: Abnormal Lab Results - Last 24 Hours (Table) 05/23/16 05/23/16 05/23/16 Range/Units 03:36 07:49 07:49 RBC 3.61 L (3.80-5.40) m/uL Hgb 10.4 L (11.4-16.0) gm/dL Hct 33.4 L (34.0-46.0) % Carbon Dioxide 31 H (22-30) mmol/L Creatinine 0.51 L (0.52-1.04) mg/dL Total Protein 5.7 L (6.3-8.2) g/dL Albumin 3.2 L (3.5-5.0) g/dL Urine Appearance Cloudy H (Clear) Urine Protein Trace H (Negative) Urine Ketones 1+ H (Negative) Ur Leukocyte Esterase Small H (Negative) Urine WBC 22 H (0-5) /hpf Ur Squamous Epith Cells 16 H (0-4) /hpf Urine Bacteria Many H (None) /hpf Urine Mucus Occasional H (None) /hpf Assessment and Plan (1) Coffee ground emesis Status: Acute (2) GI bleed Status: Acute (3) Cerebral palsy Status: Chronic (4) Hiatal hernia Status: Chronic Plan: 1. Suspect coffee-ground emesis is from possible Darryl erosions from large hiatal hernia. Supportive measures per GI prophylaxis. Slow advancement of diet. We'll follow as needed. Endoscopy not planned. Assessment and plan of care discussed with Dr. Cervantes.
[2016-05-23 14:36] VITALS: BP 91/52; PULSE 72; TEMP 97.8
--- NOTE | 2016-05-23 16:53 | DS ---
DATE OF ADMISSION: 05/22/2016 DATE OF DISCHARGE: Patient is an 85-year-old female who came in with coffee-ground emesis. Patient has multiple admissions for this similar reason, although patient did not have any coffee-ground emesis here. Patient's nausea, vomiting, completely resolved and patient will be discharged back. Patient has hiatal hernia, gastritis, and esophagitis and pat will be discharged on Maalox and Protonix. Patient was seen and examined on the day of discharge. Vitals were stable. PHYSICAL EXAMINATION: GENERAL: Patient's mental status is at his baseline which is alert and oriented times around 2 to 3. HEENT: Pupils are round and equally reacting to light. EOMI. No scleral icterus. No conjunctival pallor. Normocephalic, atraumatic. No pharyngeal erythema. No thyromegaly. CARDIOVASCULAR: S1 and S2 present. No murmurs, rubs, or gallops. PULMONARY: Chest is clear to auscultation, no wheezing or crackles. ABDOMEN: Soft, nontender, nondistended, normoactive bowel sounds. No palpable organomegaly. MUSCULOSKELETAL: No joint swelling or deformity. EXTREMITIES: No cyanosis, clubbing, or pedal edema. NEUROLOGICAL: Gross neurological examination did not reveal any focal deficits. SKIN: No rashes. FINAL DIAGNOSES: 1. Coffee-ground emesis secondary to acute gastritis esophagitis. 2. History of cerebrovascular accident in the past. 3. Hypertension. 4. Hyperlipidemia. 5. Cerebral palsy. Please refer to my depart summary for further details of discharge medication. Patient will follow with Dr. Brizuela or Dr. Sheikh depending on whichever [facility] she goes to. Activity as tolerated. Cardiac diet. I spent greater than 35 minutes in total discharge process.
== END 2016-05-23 18:25 ==
LOC: EC 21:18 → 4MS4W 05-22 00:10
PROVIDERS: ADMIT Hospitalist; ATTEND Hospitalist
DX: K92.2 Gastrointestinal hemorrhage, unspecified (principal); K21.0 Gastro-esophageal reflux disease with esophagitis; K44.9 Diaphragmatic hernia without obstruction or gangrene; I10 Essential (primary) hypertension; E78.5 Hyperlipidemia, unspecified; G80.9 Cerebral palsy, unspecified; R13.10 Dysphagia, unspecified; M19.90 Unspecified osteoarthritis, unspecified site; H35.30 Unspecified macular degeneration; R32 Unspecified urinary incontinence; F41.9 Anxiety disorder, unspecified; F32.9 Major depressive disorder, single episode, unspecified; Z79.899 Other long term (current) drug therapy; Z88.8 Allergy status to other drugs, medicaments and biological substances; Z86.73 Personal history of transient ischemic attack (TIA), and cerebral infarction without residual deficits
CPT/HCPCS: 36415; 80053 ×2; 82150; 83690; 85025 ×2; 81001; 71020; 74000; 99285; 96374; 96375 ×2; 96361 ×3; G0378 ×2; J2550; J2765; J2405 ×2; C9113 ×3; 96372; 96376

== ENCOUNTER 2016-05-26 20:03 | Inpatient (IN) | payer MEDICARE, OTHER ==
[2016-05-26] MEDS ORDERED: ONDANSETRON 4 MG/2 ML VIAL IVP STA ×2 (20:15→22:38)
[2016-05-26 20:37] LABS: Basophils % (A) 0 %; CH 30.6; CHCM 34.5; Eosinophils # (A) 0.1 k/uL (0-0.7); Eosinophils % (A) 0 %; HCT 36.5 % (34.0-46.0); HDW 2.38; Luc # (Auto) 0.07; Luc % (Auto) 1; Lymphocytes # (A) 1.5 k/uL (1.0-4.8); Lymphocytes % (A) 9 %; MCH 29.2 pg (25.0-35.0); MCHC 32.8 g/dL (31.0-37.0); Monocytes # (A) 0.7 k/uL (0-1.0); Monocytes % (A) 4 %; Neutrophils # (A) 13.6 k/uL (1.3-7.7); Neutrophils % (A) 85 %; RDW 13.8 % (11.5-15.5); WBC (Perox) 15.88
[2016-05-26 20:47] LABS: ALT 22 U/L (9-52); AST 17 U/L (14-36); Alkaline Phosphatase 47 U/L (38-126); Amylase 39 U/L (30-110); Anion Gap 13 mmol/L; Blood Urea Nitrogen 51 mg/dL (7-17); Calcium 9.1 mg/dL (8.4-10.2); Carbon Dioxide 30 mmol/L (22-30); Chloride 98 mmol/L (98-107); Glucose 140 mg/dL (74-99); Non-African American GFR(MDRD) >60 (>60 ml/min/1.73 sqM); Sodium 141 mmol/L (137-145); Total Bilirubin 0.5 mg/dL (0.2-1.3); Total Protein 6.6 g/dL (6.3-8.2)
--- NOTE | 2016-05-26 20:48 | ED ---
GI Bleed HPI - General Chief complaint: GI Bleed Stated complaint: Coffee Ground Emesis Time Seen by Provider: 05/26/16 20:06 Source: patient, RN notes reviewed Mode of arrival: EMS Limitations: physical limitation - History of Present Illness Initial comments: This patient is an 85-year-old woman sent from alf to be evaluated after having a reported episode of coffee-ground emesis. The patient states that she has a chronic problem with vomiting. She states this is been going on for months to years. She also has had episodes of coffee-ground emesis previously. The patient is not able to exactly quantify the symptoms. She is however denying any chest or abdominal pain. She denies any shortness of breath. Patient reportedly has history of cerebral palsy and is nonambulatory. She is not able to state whether there has been any change in her bowel movements. MD complaint: coffee ground emesis -: unknown Quality: painless Improves with: none Worsens with: none Context: history of GI bleed Associated Symptoms: denies other symptoms - Related Data Home Medications Medication Instructions Recorded Confirmed Albuterol Nebulized [Ventolin 2.5 mg INHALATION RT-Q8H PRN 01/04/16 05/26/16 Nebulized] Pravastatin Sodium [Pravachol] 20 mg PO HS@199901/04/16 05/26/16 Sennosides [Senna] 17.2 mg PO HS 01/04/16 05/26/16 Carbidopa/Levodopa/Entacapone 1 tab PO BID 04/08/16 05/26/16 [Wijbxlxap-Mkdygvig-Aafu 200 mg] Ensure 1 can PO BID-W/MEALS 04/08/16 05/26/16 HYDROcodone/APAP 7.5-325MG [[place] 1 tab PO Q8H PRN 04/08/16 05/26/16 7.5-325] Phenergan 25mg/Ml 12.5 mg IM Q6H PRN 05/16/16 05/26/16 Lisinopril [Zestril] 10 mg PO DAILY 05/22/16 05/26/16 Pantoprazole Sodium [Protonix] 40 mg PO AC-TID 05/22/16 05/26/16 Diazepam [Valium] 7.5 mg PO HS@2000 01/20/17 01/20/17 Previous Rx's Medication Instructions Recorded Ferrous Sulfate [Feosol] 325 mg PO BID #60 tab 01/28/16 Allergies Allergy/AdvReac Type Severity Reaction Status Date / Time baclofen Allergy Nausea & Verified 05/26/16 20:06 Vomiting aspirin AdvReac Nausea & Verified 05/26/16 20:06 Vomiting Review of Systems ROS Statement: Those systems with pertinent positive or pertinent negative responses have been documented in the HPI. ROS Other: All systems not noted in ROS Statement are negative. Limitations: ROS unobtainable due to patients medical condition Cardiovascular: Denies: chest pain Gastrointestinal: Reports: vomiting, hematemesis. Denies: abdominal pain Musculoskeletal: Denies: back pain Neurological: Denies: headache Past Medical History Past Medical History: CVA/TIA, GERD/Reflux, GI Bleed, Hyperlipidemia, Hypertension, Osteoarthritis (OA) Additional Past Medical History / Comment(s): Pt recently admitted 01/05/16 with GI bleed, past GI bleed 2006, PUD, hiatal hernia, cerebral palsy,MACULAR DEGENERATION bilaterally, TIA, URINARY INCONT-WEARS A BRIEF, dysphagia IF HURRIED . CONSTIPATION, generalized weakness, L lower leg fracture. History of Any Multi-Drug Resistant Organisms: None Reported Past Surgical History: Orthopedic Surgery Additional Past Surgical History / Comment(s): EGD/COLONOSCOPY, PAST MEDICAL HX STATED HEART CATH-PT DID'NT RECALL THIS, BRAIN SX R/T CEREBAL PALSEY" Past Anesthesia/Blood Transfusion Reactions: No Reported Reaction Past Psychological History: Anxiety, Depression Additional Psychological History / Comment(s): P resides at [facility]. She states she is mostly in bed and occasionally is assisted into a chair. She needs assist with all ADLs. She has dysphagia if she is hurried while eating. She is on a regular diet and needs a straw and lid with liquids. Smoking Status: Never smoker Past Alcohol Use History: None Reported Past Drug Use History: None Reported - Past Family History Mother Additional Family Medical History / Comment(s): MOTHER AT AGE 36 FROM TB Father Family Medical History: Dementia Brother(s) Family Medical History: Dementia General Exam Limitations: physical limitation General appearance: alert, other (This patient is an elderly woman who does appear to be chronically ill and appears to have chronic limb contractures.) Head exam: Present: atraumatic, normocephalic Eye exam: Present: normal appearance, other (Old). Absent: scleral icterus, conjunctival injection ENT exam: Present: mucous membranes dry Respiratory exam: Present: normal lung sounds bilaterally, rales (Bilateral bases), other (Gastric sounds are audible into the chest.). Absent: respiratory distress, wheezes, rhonchi, accessory muscle use, decreased breath sounds, prolonged expiratory Cardiovascular Exam: Present: tachycardia, normal heart sounds. Absent: systolic murmur, diastolic murmur, rubs, gallop GI/Abdominal exam: Present: soft, normal bowel sounds. Absent: distended, tenderness, guarding, rebound, mass, pulsatile mass, hernia Rectal exam: Present: normal inspection, normal rectal tone, black stool. Absent: mass, tenderness Extremities exam: Present: normal capillary refill, other (Contractures). Absent: pedal edema, calf tenderness Back exam: Present: normal inspection. Absent: CVA tenderness (R), CVA tenderness (L) Neurological exam: Present: alert Skin exam: Present: warm, dry, intact, normal color. Absent: rash Course Vital Signs 05/26/16 05/26/16 05/26/16 20:08 21:05 22:42 Temperature 98.1 F 97.8 F 98.5 F Pulse Rate 117 H 117 H 119 H Respiratory 18 20 20 Rate Blood Pressure 160/90 151/95 144/87 O2 Sat by Pulse 94 L 98 95 Oximetry Medical Decision Making - Lab Data Result diagrams: 05/26/16 20:30 05/26/16 20:30 Lab Results 05/26/16 05/26/16 05/26/16 Range/Units 20:29 20:30 20:30 WBC 16.0 H (3.8-10.6) k/uL RBC 4.10 (3.80-5.40) m/uL Hgb 12.0 (11.4-16.0) gm/dL Hct 36.5 (34.0-46.0) % MCV 89.0 (80.0-100.0) fL MCH 29.2 (25.0-35.0) pg MCHC 32.8 (31.0-37.0) g/dL RDW 13.8 (11.5-15.5) % Plt Count 350 (150-450) k/uL Neutrophils % 85 % Lymphocytes % 9 % Monocytes % 4 % Eosinophils % 0 % Basophils % 0 % Neutrophils # 13.6 H (1.3-7.7) k/uL Lymphocytes # 1.5 (1.0-4.8) k/uL Monocytes # 0.7 (0-1.0) k/uL Eosinophils # 0.1 (0-0.7) k/uL Basophils # 0.0 (0-0.2) k/uL Sodium 141 (137-145) mmol/L Potassium 3.0 L* (3.5-5.1) mmol/L Chloride 98 (98-107) mmol/L Carbon Dioxide 30 (22-30) mmol/L Anion Gap 13 mmol/L BUN 51 H (7-17) mg/dL Creatinine 0.60 (0.52-1.04) mg/dL Est GFR (MDRD) Af Amer >60 (>60 ml/min/1.73 sqM) Est GFR (MDRD) Non-Af >60 (>60 ml/min/1.73 sqM) Glucose 140 H (74-99) mg/dL Calcium 9.1 (8.4-10.2) mg/dL Total Bilirubin 0.5 (0.2-1.3) mg/dL AST 17 (14-36) U/L ALT 22 (9-52) U/L Alkaline Phosphatase 47 (38-126) U/L Total Protein 6.6 (6.3-8.2) g/dL Albumin 3.7 (3.5-5.0) g/dL Amylase 39 (30-110) U/L Lipase 59 (23-300) U/L Urine Color Urine Appearance (Clear) Urine pH (5.0-8.0) Ur Specific [place] (1.001-1.035) Urine Protein (Negative) Urine Glucose (UA) (Negative) Urine Ketones (Negative) Urine Blood (Negative) Urine Nitrate (Negative) Urine Bilirubin (Negative) Urine Urobilinogen (<2.0) mg/dL Ur Leukocyte Esterase (Negative) Urine RBC (0-5) /hpf Urine WBC (0-5) /hpf Ur Squamous Epith Cells (0-4) /hpf Urine Bacteria (None) /hpf Hyaline Casts (0-2) /lpf Urine Mucus (None) /hpf Stool Occult Blood Positive H (Negative) 05/26/16 Range/Units 22:30 WBC (3.8-10.6) k/uL RBC (3.80-5.40) m/uL Hgb (11.4-16.0) gm/dL Hct (34.0-46.0) % MCV (80.0-100.0) fL MCH (25.0-35.0) pg MCHC (31.0-37.0) g/dL RDW (11.5-15.5) % Plt Count (150-450) k/uL Neutrophils % % Lymphocytes % % Monocytes % % Eosinophils % % Basophils % % Neutrophils # (1.3-7.7) k/uL Lymphocytes # (1.0-4.8) k/uL Monocytes # (0-1.0) k/uL Eosinophils # (0-0.7) k/uL Basophils # (0-0.2) k/uL Sodium (137-145) mmol/L Potassium (3.5-5.1) mmol/L Chloride (98-107) mmol/L Carbon Dioxide (22-30) mmol/L Anion Gap mmol/L BUN (7-17) mg/dL Creatinine (0.52-1.04) mg/dL Est GFR (MDRD) Af Amer (>60 ml/min/1.73 sqM) Est GFR (MDRD) Non-Af (>60 ml/min/1.73 sqM) Glucose (74-99) mg/dL Calcium (8.4-10.2) mg/dL Total Bilirubin (0.2-1.3) mg/dL AST (14-36) U/L ALT (9-52) U/L Alkaline Phosphatase (38-126) U/L Total Protein (6.3-8.2) g/dL Albumin (3.5-5.0) g/dL Amylase (30-110) U/L Lipase (23-300) U/L Urine Color Yellow Urine Appearance Cloudy H (Clear) Urine pH 5.5 (5.0-8.0) Ur Specific [place] 1.015 (1.001-1.035) Urine Protein Trace H (Negative) Urine Glucose (UA) Negative (Negative) Urine Ketones 1+ H (Negative) Urine Blood Negative (Negative) Urine Nitrate Negative (Negative) Urine Bilirubin Negative (Negative) Urine Urobilinogen <2.0 (<2.0) mg/dL Ur Leukocyte Esterase Negative (Negative) Urine RBC <1 (0-5) /hpf Urine WBC 1 (0-5) /hpf Ur Squamous Epith Cells <1 (0-4) /hpf Urine Bacteria Rare H (None) /hpf Hyaline Casts 4 H (0-2) /lpf Urine Mucus Rare H (None) /hpf Stool Occult Blood (Negative) Disposition Clinical Impression: Coffee ground emesis, Vomiting Disposition: ADMITTED IP TO THIS HOSP Condition: Poor
[2016-05-26 22:42] LABS: Appearance,Urine Cloudy (Clear); Bacteria,Urine Rare /hpf; Bilirubin,Urine Negative (Negative); Glucose,Urine (UA) Negative (Negative); Ketones,Urine 1+ (Negative); Leukocyte Esterase,Urine Negative (Negative); Mucus,Urine Rare /hpf; Nitrite,Urine Negative (Negative); PH, Urine 5.5 (5.0-8.0); Particle Count 33807; Protein,Urine Trace (Negative); RBC,Urine <1 /hpf (0-5); Specific Gravity,Urine 1.015 (1.001-1.035); Squamous Epithelial Cell,Urine <1 /hpf (0-4); UA Billing (MACRO vs. MICRO) MICRO; Urobilinogen,Urine <2.0 mg/dL (<2.0); WBC,Urine 1 /hpf (0-5)
[2016-05-26] MEDS ORDERED: NALOXONE 0.4 MG/ML 1 ML VIAL IV PRN (23:44)
[2016-05-26] MEDS ORDERED: DOCUSATE 100 MG CAP PO PRN (23:44)
[2016-05-26] MEDS ORDERED: MAG HYDROX/AL HYDROX/SIMETH 30 ML CUP PO PRN (23:44)
[2016-05-26] MEDS ORDERED: PROCHLORPERAZINE SUPPOSITORY 25 MG SUPP RECTAL PRN (23:44)
[2016-05-26] MEDS ORDERED: HYDROcodone/APAP 7.5-325MG 1 EACH TAB PO PRN (23:48)
[2016-05-26] MEDS ORDERED: PROMETHAZINE 6.25MG/5ML 147.5 MG/118 ML BOTTLE PO PRN (23:48)
[2016-05-26] MEDS ORDERED: ALBUTEROL NEBULIZED 2.5 MG/3 ML INHALATION PRN (23:48)
[2016-05-27] MEDS ORDERED: METOCLOPRAMIDE 5 MG/ML 2 ML VIAL IVP STA ×2 (00:22→00:24)
[2016-05-27] MEDS: SODIUM CHLORIDE 0.9% 1,000 ML IV SCH ×3 (00:26→20:10)
--- NOTE | 2016-05-27 00:42 | XR ---
EXAMINATION TYPE: XR KUB DATE OF EXAM: 05/27/2016 12:20 AM CLINICAL HISTORY: Coffee-ground emesis. TECHNIQUE: Single supine KUB image of the abdomen is obtained. Portable study 05/27/2016, 1205 hours COMPARISON: 05/21/[address] abdomen and pelvis 01/04/2016 FINDINGS: There is moderate gaseous distention of stomach. [id number]-[id number] gaseous and fecal distention of colonic bowel loops are noted. No significant bowel obstruction changes are noted. Calcified density is noted in the left upper abdomen and is probably r elated to calcified left kidney cyst. There is no visceromegaly, pneumoperitoneum, or abnormal calcification appreciated. The lung bases are clear. [id number] degenerative changes with S-shaped scoliosis in the thoracolumbar spine. IMPRESSION: Overall nonobstructive bowel gas pattern.
[2016-05-27] MEDS ORDERED: POTASSIUM CHLORIDE 20 MEQ, LIDOCAINE 2% INJ 20 MG in SODIUM CHLORIDE 0.9% 100 ML IVPB ONE (01:34)
[2016-05-27 02:56] VITALS: BMI 26.2
[2016-05-27] MEDS ORDERED: NON-FORMULARY DRUG (Ensure 1 CAN) PO SCH (07:30)
[2016-05-27 08:07] LABS: Basophils % (A) 0 %; CH 29.9; Eosinophils % (A) 0 %; HCT 31.2 % (34.0-46.0); HDW 2.29; HGB 10.4 gm/dL (11.4-16.0); Luc # (Auto) 0.19; Luc % (Auto) 2; Lymphocytes # (A) 1.8 k/uL (1.0-4.8); Lymphocytes % (A) 14 %; MCH 30.2 pg (25.0-35.0); MCHC 33.2 g/dL (31.0-37.0); MCV 90.9 fL (80.0-100.0); Mean Platelet Volume 7.2; Monocytes # (A) 0.8 k/uL (0-1.0); Monocytes % (A) 6 %; Neutrophils % (A) 78 %; RBC 3.43 m/uL (3.80-5.40); RDW 13.9 % (11.5-15.5); WBC 12.8 k/uL (3.8-10.6); WBC (Perox) 13.21
[2016-05-27 08:19] LABS: Anion Gap 10 mmol/L; Blood Urea Nitrogen 39 mg/dL (7-17); Calcium 8.3 mg/dL (8.4-10.2); Carbon Dioxide 28 mmol/L (22-30); Chloride 105 mmol/L (98-107); Glucose 121 mg/dL (74-99); Non-African American GFR(MDRD) >60 (>60 ml/min/1.73 sqM); Potassium 3.5 mmol/L (3.5-5.1); Sodium 143 mmol/L (137-145)
[2016-05-27] MEDS: LISINOPRIL 10 MG TAB PO SCH (08:23)
[2016-05-27] MEDS ORDERED: ACETAMINOPHEN TAB 325 MG TAB PO STA (08:28)
[2016-05-27] MEDS: ONDANSETRON 4 MG/2 ML VIAL IVP PRN (08:30)
[2016-05-27] MEDS ORDERED: FERROUS SULFATE 325 MG TAB PO SCH (09:00)
[2016-05-27] MEDS ORDERED: [UNRECOGNIZED DRUG - OTHER] PO SCH (09:00)
[2016-05-27] MEDS: CARBIDOPA-LEVODOPA 25-100 MG 1 EACH TAB PO SCH ×2 (09:10→20:08)
[2016-05-27] MEDS: ENTACAPONE 200 MG TAB PO SCH ×2 (09:11→20:09)
[2016-05-27] MEDS: PANTOPRAZOLE 40 MG/10 ML VIAL IV SCH (09:12)
[2016-05-27 16:21] LABS: Basophils % (A) 0 %; CH 29.6; CHCM 31.9; Eosinophils # (A) 0.1 k/uL (0-0.7); Eosinophils % (A) 1 %; HCT 26.4 % (34.0-46.0); HDW 2.35; Luc # (Auto) 0.15; Luc % (Auto) 2; Lymphocytes # (A) 2.1 k/uL (1.0-4.8); Lymphocytes % (A) 25 %; MCH 29.4 pg (25.0-35.0); MCHC 31.5 g/dL (31.0-37.0); MCV 93.2 fL (80.0-100.0); Mean Platelet Volume 7.9; Monocytes # (A) 0.5 k/uL (0-1.0); Monocytes % (A) 6 %; Neutrophils # (A) 5.5 k/uL (1.3-7.7); Neutrophils % (A) 66 %; RBC 2.84 m/uL (3.80-5.40); RDW 13.9 % (11.5-15.5); WBC 8.3 k/uL (3.8-10.6); WBC (Perox) 8.09
[2016-05-27 16:29] LABS: HGB 8.3 gm/dL (11.4-16.0)
[2016-05-27] MEDS: PRAVASTATIN SODIUM 20 MG TAB PO SCH (20:08)
[2016-05-27] MEDS: DIAZEPAM 5 MG TAB PO SCH (20:09)
[2016-05-27] MEDS: SENNOSIDES 8.6 MG TAB PO SCH (20:09)
[2016-05-27] MEDS ORDERED: SODIUM CHLORIDE 0.9% 1,000 ML IV ONE (22:43)
--- NOTE | 2016-05-27 22:47 | HP ---
DATE OF ADMISSION: 05/26/2016 CHIEF COMPLAINT: Coffee-ground emesis. HISTORY OF PRESENT ILLNESS: This 85-year-old woman with a past medical history of multiple medical problems including history of CVA, TIA, GERD, history of gastrointestinal bleed, hypertension, hyperlipidemia, history of degenerative joint disease, history anxiety, depression, being followed by Dr. Carlos in the [facility], recently admitted with gastrointestinal bleed. The patient was treated symptomatically and the patient was discharged, currently the patient is complaining of multiple episodes of hematemesis and the patient taken to [facility] and admitted to the hospital for further evaluation and treatment. Hemoglobin initially was 12, subsequently 10.4 and 8.3. Patient is barely communicative. Most of the history taken from my discussion with staff and review of the chart at this time. PAST MEDICAL HISTORY: History of CVA, TIA, history gastroesophageal reflux disease, GI bleed, hypertension, hyperlipidemia, DJD, history of contractures, gait dysfunction, anxiety and depression. Medications prior to admission include: 1. Phenergan 12.5 q.6 p.r.n. 2. Protonix 40 mg t.i.d. 3. [place] 7.5 q.8 p.r.n. 4. Albuterol. 5. Iron sulfate 320 mg b.i.d. 6. Ensure b.i.d. 7. Carbidopa L-dopa 1 tablets p.o. b.i.d. 8. Senna 17.25 q.h.s. 9. Pravachol 20 mg p.o. q.h.s. 10. Zestril 10 mg daily. 11. Valium 7.5 mg q.h.s. ALLERGIES: BACLOFEN, ASPIRIN. Family history, social history, review of systems could not be taken because of change in mental status and the patient's contractures and other medical issues. The patient apparently has dementia in the family and other history is unknown. PHYSICAL EXAMINATION: The patient is arousable, oriented x1. Pulse 87, blood pressure 85/53, respiratory rate 18, temperature 98.2, pulse ox 94% on room air. HEENT: Conjunctivae pale. Oral mucosa moist. NECK: No jugular venous distention. No carotid bruits. No lymph node enlargements. CARDIOVASCULAR: S1, S2 muffled. No S3, no S4. RESPIRATORY: Breath sounds diminished at the bases. A few scattered rhonchi and crackles. ABDOMEN: Soft, nontender. No mass palpable. Legs: No edema. No swelling. Nervous system: Higher function as mentioned earlier. Otherwise, moves all four limbs. No focal motor deficits. LYMPHATICS: No lymph nodes palpable in the neck, axillae or groin. SKIN: No ulcer, rash or bleeding. Otherwise, musculoskeletal diffuse contractures. LABS: WBC 8.3, hemoglobin is 8.3. Other labs are noted. ASSESSMENT: 1. Acute coffee-ground emesis with acute blood loss anemia. 2. Relative hypotension. 3. Hypokalemia present on admission. 4. Dementia. 5. Multiple cerebrovascular accident with contractures. 6. Gait dysfunction. 7. History of gastroesophageal reflux disease. 8. History of gastrointestinal bleed. 9. Hyperlipidemia. 10. Hypertension. 11. History of degenerative joint disease. 12. History of cerebral palsy. 13. Macular degeneration. 14. History of dysphagia. 15. History of anxiety depression. 16. NO CODE, NO CPR, NO VENTILATOR. RECOMMENDATIONS AND DISCUSSION: This 85 -year-old woman presented with multiple complex medical issues, we will monitor the patient closely, continue with the current medications. Continue symptomatic treatment. Otherwise I would recommend transfusion, continue with IV fluids. GI consultation for endoscopy. Prognosis guarded. Avoid NSAIDS. Proton pump inhibitors. Guarded prognosis because of multiple complex medical issues. NO CODE, NO CPR, NO VENT. A copy of dictation being forwarded to Dr. Carlos. Further recommendations to follow. [facility]
[2016-05-27 23:21] LABS: Basophils % (A) 0 %; CH 29.4; CHCM 31.7; MCHC 32.2 g/dL (31.0-37.0); Mean Platelet Volume 7.6
[2016-05-27 23:23] LABS: Glucose,Whole Blood 95 mg/dL (75-99)
[2016-05-27 23:24] LABS: Eosinophils # (A) 0.1 k/uL (0-0.7); Eosinophils % (A) 1 %; HCT 21.5 % (34.0-46.0); HDW 2.39; Luc # (Auto) 0.13; Luc % (Auto) 2; Lymphocytes % (A) 22 %; MCV 93.2 fL (80.0-100.0); Monocytes # (A) 0.4 k/uL (0-1.0); Monocytes % (A) 5 %; Neutrophils # (A) 6.3 k/uL (1.3-7.7); Neutrophils % (A) 70 %; RDW 13.9 % (11.5-15.5); WBC (Perox) 8.93
[2016-05-27 23:27] LABS: HGB 6.9 gm/dL (11.4-16.0)
[2016-05-27 23:34] LABS: Anion Gap 2 mmol/L; Blood Urea Nitrogen 28 mg/dL (7-17); Calcium 7.2 mg/dL (8.4-10.2); Carbon Dioxide 25 mmol/L (22-30); Chloride 114 mmol/L (98-107); Glucose 81 mg/dL (74-99); Non-African American GFR(MDRD) >60 (>60 ml/min/1.73 sqM); Sodium 141 mmol/L (137-145)
[2016-05-28 05:53] LABS: Basophils % (A) 0 %; CH 29.3; CHCM 31.3; Eosinophils # (A) 0.1 k/uL (0-0.7); Eosinophils % (A) 2 %; HCT 23.6 % (34.0-46.0); HDW 2.41; HGB 7.4 gm/dL (11.4-16.0); Hypochromasia Slight; Luc # (Auto) 0.11; Luc % (Auto) 2; Lymphocytes # (A) 2.2 k/uL (1.0-4.8); Lymphocytes % (A) 30 %; MCH 29.5 pg (25.0-35.0); MCHC 31.3 g/dL (31.0-37.0); MCV 94.3 fL (80.0-100.0); Mean Platelet Volume 7.4; Monocytes # (A) 0.3 k/uL (0-1.0); Monocytes % (A) 5 %; Neutrophils # (A) 4.4 k/uL (1.3-7.7); Neutrophils % (A) 61 %; RDW 14.1 % (11.5-15.5); WBC 7.2 k/uL (3.8-10.6); WBC (Perox) 7.67
[2016-05-28 06:14] LABS: Anion Gap 7 mmol/L; Blood Urea Nitrogen 24 mg/dL (7-17); Calcium 7.6 mg/dL (8.4-10.2); Carbon Dioxide 24 mmol/L (22-30); Chloride 114 mmol/L (98-107); Glucose 77 mg/dL (74-99); Non-African American GFR(MDRD) >60 (>60 ml/min/1.73 sqM); Potassium 3.3 mmol/L (3.5-5.1); Sodium 145 mmol/L (137-145)
[2016-05-28] MEDS: LISINOPRIL 10 MG TAB PO SCH (10:32)
[2016-05-28] MEDS: ENTACAPONE 200 MG TAB PO SCH ×2 (10:33→21:20)
[2016-05-28] MEDS: CARBIDOPA-LEVODOPA 25-100 MG 1 EACH TAB PO SCH ×2 (10:33→21:20)
[2016-05-28] MEDS: PANTOPRAZOLE 40 MG/10 ML VIAL IV SCH ×2 (10:34→21:21)
[2016-05-28] MEDS: SODIUM CHLORIDE 0.9% 1,000 ML IV SCH ×2 (10:36→19:59)
[2016-05-28] MEDS ORDERED: Potassium Replacement Protocol 1 EACH MISC MISCELLANE PRN (10:41)
[2016-05-28] MEDS: POTASSIUM CHLORIDE 10 MEQ, LIDOCAINE 2% INJ 10 MG in SODIUM CHLORIDE 0.9% 100 ML IV SCH ×2 (11:51→13:30)
--- NOTE | 2016-05-28 15:06 | XR ---
EXAMINATION TYPE: XR chest 1V portable DATE OF EXAM: 05/28/2016 2:52 PM COMPARISON: Prior chest x-ray 21 May 2016 HISTORY: Abnormal chest x-ray, possible congestive heart failure TECHNIQUE: Single frontal view of the chest is obtained. FINDINGS: Arthropathy again noted within the right shoulder greater than left. Heart size is borderl ine increased which may be accentuated by rotation. Biapical pleural thickening is again noted. No pn eumothorax or pleural effusion. Lung volumes are low. Retrocardiac lucency compatible with large hiat al hernia. Interstitium is increased. IMPRESSION: Hiatal hernia, interstitial lung disease is chronic.
[2016-05-28 16:47] LABS: Potassium 3.4 mmol/L (3.5-5.1)
--- NOTE | 2016-05-28 16:48 | PN ---
DATE OF SERVICE: 05/28/2016 This 85-year-old woman was admitted with coffee-ground emesis, also had hypotension and an episode of coffee-ground emesis last night. The patient was transferred to [facility]. The hemoglobin also dropped to 6.9. The patient is Jehovah Witness, no transfusions, hence potassium was treated and currently 3.3. PAST MEDICAL HISTORY: Reviewed. REVIEW OF SYSTEM: CARDIOVASCULAR: No angina, palpitation. RESPIRATORY: Occasional cough. GI: As mentioned earlier. : No dysuria. NERVOUS SYSTEM: Diffusely weak and mildly confused also. Current medication are: 1. Stitzer 7.3 q.8 p.r.n. 2. Maalox. 3. Valium. 4. Colace. 5. Sinemet. 6. Narcan. 7. Zofran. 8. Protonix. 9. Pravachol. 10. Compazine. 11. Senokot. PHYSICAL EXAM: Patient is alert and oriented x1. Pulse 82, blood pressure is 88/52, respirations 18, temperature 97.2, pulse ox 94% on room air. HEENT: Conjunctivae are pale. Oral mucosa moist. NECK: No JVD, no carotid bruit, no lymph node enlargement. CARDIOVASCULAR SYSTEM: S1, S2, muffled. RESPIRATORY: Breath sounds diminished at the bases, a few scattered rhonchi, no crackles. Abdomen is soft, nontender. No mass palpable. Legs: No edema. NERVOUS SYSTEM: Diffusely weak, contractures present. LYMPHATICS: No lymph node enlargement in the neck, axillae or groin. SKIN: No rash. LABS: WBC is 7.8, hemoglobin is 7.4, potassium 3.3. ASSESSMENT: 1. Acute upper gastrointestinal bleeding with coffee-ground emesis with acute blood loss anemia. 2. Relative hypotension secondary to blood loss anemia. 3. Hypokalemia present on admission. 4. Dementia. 5. Oriental orthodox. 6. Multiple cerebrovascular accidents and contractures. 7. Gait dysfunction. 8. History of gastroesophageal reflux disease. 9. History of gastrointestinal bleed, previously. 10. Hyperlipidemia. 11. Hypertension. 12. History of degenerative joint disease. 13. History of cerebral palsy with contractures. 14. History of degenerative joint disease. 15. History of dysphagia. 16. History of anxiety, depression. 17. NO CODE, NO CARDIOPULMONARY RESUSCITATION, NO VENTILATOR. RECOMMENDATION: In this 85-year-old woman who presented with multiple complex medical issues, will monitor the patient closely. Continue with the current medications, continue with the symptomatic treatment. Otherwise, I would check serum iron. recommend intravenous iron if levels are low. Otherwise, continue with the current treatment. No blood transfusion per Oriental orthodox. Await Gastroenterology evaluation, add Carafate empirically. Guarded prognosis because of multiple complex medical issues. Further recommendations to follow. Discussed with the staff. Patient is NO CODE.
[2016-05-28 16:56] LABS: % Iron Saturation 13.6 % (20-50)
[2016-05-28 16:59] LABS: Basophils % (A) 0 %; CH 29.2; CHCM 30.9; Eosinophils # (A) 0.2 k/uL (0-0.7); Eosinophils % (A) 3 %; HCT 25.5 % (34.0-46.0); HDW 2.42; HGB 8.1 gm/dL (11.4-16.0); Hypochromasia Slight; Luc # (Auto) 0.09; Luc % (Auto) 1; Lymphocytes # (A) 2.5 k/uL (1.0-4.8); Lymphocytes % (A) 30 %; MCH 30.3 pg (25.0-35.0); MCHC 31.8 g/dL (31.0-37.0); MCV 95.2 fL (80.0-100.0); Mean Platelet Volume 7.8; Monocytes # (A) 0.4 k/uL (0-1.0); Monocytes % (A) 4 %; Neutrophils % (A) 61 %; RBC 2.68 m/uL (3.80-5.40); RDW 14.1 % (11.5-15.5); WBC 8.1 k/uL (3.8-10.6); WBC (Perox) 8.05
[2016-05-28] MEDS: SUCRALFATE 1 GM TAB PO SCH ×2 (17:07→21:21)
[2016-05-28] MEDS: POTASSIUM CHLORIDE 10 MEQ, LIDOCAINE 2% INJ 10 MG in SODIUM CHLORIDE 0.9% 100 ML IVPB SCH ×2 (18:27→19:59)
[2016-05-28] MEDS: PRAVASTATIN SODIUM 20 MG TAB PO SCH (21:20)
[2016-05-28] MEDS: SENNOSIDES 8.6 MG TAB PO SCH (21:21)
[2016-05-28] MEDS: DIAZEPAM 5 MG TAB PO SCH (21:30)
[2016-05-29 06:11] LABS: Basophils % (A) 0 %; CH 29.4; CHCM 31.2; Eosinophils # (A) 0.2 k/uL (0-0.7); Eosinophils % (A) 4 %; HCT 23.8 % (34.0-46.0); HDW 2.47; HGB 7.5 gm/dL (11.4-16.0); Hypochromasia Slight; Luc % (Auto) 2; Lymphocytes # (A) 2.1 k/uL (1.0-4.8); Lymphocytes % (A) 36 %; MCH 29.7 pg (25.0-35.0); MCHC 31.4 g/dL (31.0-37.0); MCV 94.7 fL (80.0-100.0); Mean Platelet Volume 7.5; Monocytes # (A) 0.2 k/uL (0-1.0); Monocytes % (A) 4 %; Neutrophils # (A) 3.1 k/uL (1.3-7.7); Neutrophils % (A) 54 %; RBC 2.51 m/uL (3.80-5.40); RDW 14.2 % (11.5-15.5); WBC 5.7 k/uL (3.8-10.6); WBC (Perox) 6.09
[2016-05-29] MEDS: SUCRALFATE 1 GM TAB PO SCH ×4 (08:06→22:17)
[2016-05-29] MEDS: CARBIDOPA-LEVODOPA 25-100 MG 1 EACH TAB PO SCH ×2 (08:06→22:16)
[2016-05-29] MEDS: ENTACAPONE 200 MG TAB PO SCH ×2 (08:07→22:16)
[2016-05-29] MEDS: PANTOPRAZOLE 40 MG/10 ML VIAL IV SCH ×2 (08:09→22:16)
[2016-05-29] MEDS: SODIUM CHLORIDE 0.9% 1,000 ML IV SCH (08:09)
[2016-05-29] MEDS ORDERED: Potassium Replacement Protocol 1 EACH MISC MISCELLANE PRN ×2 (09:59→16:35)
[2016-05-29] MEDS: POTASSIUM CHLORIDE 10 MEQ in WATER FOR INJECTION 1 100ML.BAG IVPB SCH ×4 (10:16→19:07)
[2016-05-29] MEDS ORDERED: PROPOFOL 10 MG/ML 20 ML VIAL IV ONE (11:57)
[2016-05-29] MEDS ORDERED: IV FLUID CONTINUATION 1,000 ML IV ONE (12:03)
--- NOTE | 2016-05-29 12:22 | P.PCN ---
Date of Procedure: 05/29/16 Procedure(s) Performed: Date: May 29, 2016. Procedure: Esophagogastroduodenoscopy. Preoperative diagnosis: Hematemesis and anemia. Postoperative diagnosis: 1. Moderately sized hiatal hernia with no definite esophagitisesophagitis. 2. Minimal antral gastritis but no ulcers or gastric outlet obstruction. 3. No evidence of bleeding noted on this exam. Preparation and sedation: Was provided by anesthesia. Brief clinical history: The patient is an 85-year-old female with history of cerebral palsy who was admitted to the hospital because of hematemesis. This is the fourth episode that she had within the last few months. She was hospitalized within the last month for similar presentation and endoscopy was deferred because of her cerebral palsy and significant dextro-scoliosis and since clinically she was suspected of having a mucosal tear and responded to conservative treatment. In January of last year, an upper endoscopy showed low-grade esophagitis and mild gastritis and minimal duodenitis. Biopsies were negative for H. pylori infection. Because of the recurrence of the problem at this time, we are proceeding with this upper endoscopy today. The details are summarized in the history and physical and dictated consultation. Procedure: With the patient on her left lateral decubitus position and after informed consent and adequate sedation, I passed the Olympus-GIF 160 video upper endoscope through the cricopharyngeus down the esophagus. GE junction was around 28-29 cm from the incisors and there was a moderately sized hiatal hernia. The distal esophagus showed no definite evidence of esophagitis. There was no strictures or Rodriguez's esophagus. There was no mucosal tears or bleeding. The endoscope was then passed into the stomach which was insufflated with air and inspected in detail including the retroflex view in the cardia. There was minimal mottling and erythema in the antrum but no ulcers or erosions. Pyloric channel did not show any ulcers. Duodenal bulb post bulbar area and descending duodenum did not show any ulcers or bleeding. The patient tolerated the procedure well. Plan: The patient was reassured. Will allow diet and continue to monitor blood counts. Further plans based on her course.
[2016-05-29] MEDS: SODIUM FERRIC GLUCONAT-SUCROSE 125 MG in SODIUM CHLORIDE 0.9% 100 ML IVPB SCH (14:22)
[2016-05-29] MEDS: 0.9% NACL WITH KCL 20 MEQ/L 1,000 ML IV SCH (14:22)
--- NOTE | 2016-05-29 14:53 | CDI ---
In responding to this query, please exercise your independent professional judgment. The [facility] Coding Staff and Clinical Documentation Specialists appreciate your assistance in clarifying documentation, maintaining compliance with coding guidelines, accurately documenting patients condition and capturing severity of illness. The fact that a question is asked does not imply that any particular answer is desired or expected. Communication forms are a method of clarifying documentation and are not made part of the Legal Health Record. Thank you in advance for your clarification. Last Revision, March 2015 Fiorella Del Angel [address] [facility] [place] [address] Documentation Clarification Form Date: 05/29/2016 2:41:00 PM From: Misael Joshi, RN, BSN, CDI Admit Date: 05/28/2016 2:21:00 PM Patient Name: Paige Umaña Visit Number: [id number] Dr. Becca Corbin History: 85 yo female presents from [facility] with a history of cerebral palsy and multiple strokes. Clinical Indicators: Per the ED report "she is mostly in bed and occasionally assisted into a chair, she needs assistance with all ADL's. She is noted to have chronic limb contractures. She has dysphagia if she is hurried while eating. Treatment: maximum assistance with all ADL's In order to capture the severity of condition, please clarify the type of paralysis and etiology if known: Quadriplegia (, functional, incomplete, spastic, other) Paraplegia (functional, incomplete, spastic, other) Other (please specify) Unable to determine Please document in your progress notes and discharge summary in order to capture severity of illness and risk of mortality. Include clinical findings that support your diagnosis. FYI: Press F11 to launch patient chart. Place X here if this finding has no clinical significance, is not applicable or if you are not able to provide any additional documentation. CONRADO
[2016-05-29] MEDS: ONDANSETRON 4 MG/2 ML VIAL IVP PRN (16:25)
[2016-05-29 17:48] LABS: Basophils % (A) 0 %; CH 29.9; CHCM 32.3; Eosinophils # (A) 0.3 k/uL (0-0.7); Eosinophils % (A) 2 %; HCT 41.1 % (34.0-46.0); HDW 2.57; Luc # (Auto) 0.18; Luc % (Auto) 1; Lymphocytes % (A) 24 %; MCH 30.2 pg (25.0-35.0); MCHC 32.5 g/dL (31.0-37.0); MCV 92.9 fL (80.0-100.0); Mean Platelet Volume 8.4; Monocytes # (A) 0.4 k/uL (0-1.0); Monocytes % (A) 3 %; Neutrophils # (A) 8.6 k/uL (1.3-7.7); Neutrophils % (A) 69 %; RBC 4.43 m/uL (3.80-5.40); RDW 14.4 % (11.5-15.5); WBC 12.5 k/uL (3.8-10.6); WBC (Perox) 13.12
[2016-05-29 17:52] LABS: HGB 13.4 gm/dL (11.4-16.0)
[2016-05-29] MEDS: PRAVASTATIN SODIUM 20 MG TAB PO SCH (22:16)
[2016-05-29] MEDS: SENNOSIDES 8.6 MG TAB PO SCH (22:16)
[2016-05-29] MEDS: DIAZEPAM 5 MG TAB PO SCH (22:16)
[2016-05-30] MEDS: ONDANSETRON 4 MG/2 ML VIAL IVP PRN (00:18)
--- NOTE | 2016-05-30 05:39 | PN ---
DATE OF SERVICE: 05/29/2016 This is an 85-year-old woman who was admitted with coffee ground emesis, also had anemia and GI bleed also. The patient is Jehovah Witness. The patient has some iron deficiency anemia also. EGD done by Dr. Perry showed today moderately sized hiatal hernia with definite esophagitis and minimal antral gastritis. No ulcers. No evidence of bleeding noted on the exam. The patient has been closely monitored. No chest pain or palpitation. No fever. On exam, alert and oriented x2. Pulse 120, blood pressure 114/65, respirations 18, temperature 98 degrees, pulse ox 93% on room air. HEENT: Conjunctivae pale. NECK: No jugular venous distention. CARDIOVASCULAR: S1 and S2, muffled. RESPIRATORY: Breath sounds diminished at the bases. A few scattered rhonchi and crackles. ABDOMEN: Soft, nontender. LEGS: No edema, no swelling. NERVOUS SYSTEM: Unchanged. LABS: WBC 5.7, hemoglobin 7.5, otherwise, iron is 33. ASSESSMENT: 1. Acute upper gastrointestinal bleeding with coffee-ground emesis with acute blood loss anemia. probably antral gastritis 2. Significant hiatal hernia on the EGD with no evidence of active bleeding. 3. Relative hypotension secondary to acute blood loss anemia. 4. Iron deficiency. 5. Hypokalemia, present on admission. 6. Dementia. 7. Jehovah Witness. 8. Multiple cerebrovascular accidents and contractures. 9. Gait dysfunction. 10. History of gastroesophageal reflux disease. 11. History of gastrointestinal bleed, previously. 12. Hyperlipidemia. 13. Hypertension. 14. History of degenerative joint disease. 15. History of cerebral palsy with contractures. 16. History of dysphagia. 17. History of anxiety, depression. 18. NO CODE, NO CPR, NO VENT. RECOMMENDATIONS AND DISCUSSION: Recommend to continue the current medications. Continues symptomatic treatment. Otherwise, at this time I recommend iron infusions other than that repeat labs will be ordered. Closely monitor. Closely follow with Cardiology. The overall prognosis is guarded, but; however the patient is stable at this time. Will attempt diet and continue to monitor. Further recommendations to follow. MTDD
[2016-05-30] MEDS: 0.9% NACL WITH KCL 20 MEQ/L 1,000 ML IV SCH ×2 (06:31→16:27)
[2016-05-30] MEDS: SUCRALFATE 1 GM TAB PO SCH ×2 (06:31→12:30)
[2016-05-30 06:46] LABS: Anion Gap 6 mmol/L; Blood Urea Nitrogen 9 mg/dL (7-17); Calcium 7.6 mg/dL (8.4-10.2); Carbon Dioxide 18 mmol/L (22-30); Chloride 113 mmol/L (98-107); Glucose 88 mg/dL (74-99); Non-African American GFR(MDRD) >60 (>60 ml/min/1.73 sqM); Potassium 4.2 mmol/L (3.5-5.1); Sodium 137 mmol/L (137-145)
[2016-05-30 06:49] LABS: Basophils % (A) 0 %; CH 29.5; CHCM 31.1; Eosinophils # (A) 0.1 k/uL (0-0.7); Eosinophils % (A) 1 %; HCT 29.2 % (34.0-46.0); Hypochromasia Slight; Luc # (Auto) 0.13; Luc % (Auto) 1; Lymphocytes # (A) 2.2 k/uL (1.0-4.8); Lymphocytes % (A) 20 %; MCH 29.7 pg (25.0-35.0); MCHC 31.1 g/dL (31.0-37.0); MCV 95.5 fL (80.0-100.0); Mean Platelet Volume 7.5; Monocytes # (A) 0.4 k/uL (0-1.0); Monocytes % (A) 4 %; Neutrophils # (A) 8.3 k/uL (1.3-7.7); Neutrophils % (A) 74 %; RBC 3.06 m/uL (3.80-5.40); RDW 14.7 % (11.5-15.5); WBC 11.2 k/uL (3.8-10.6); WBC (Perox) 10.93
[2016-05-30 06:50] LABS: HGB 9.1 gm/dL (11.4-16.0)
--- NOTE | 2016-05-30 07:09 | PN ---
PROGRESS NOTE ADDENDUM: Please add: Functional quadriplegia to the final diagnosis.
[2016-05-30] MEDS: SODIUM FERRIC GLUCONAT-SUCROSE 125 MG in SODIUM CHLORIDE 0.9% 100 ML IVPB SCH (08:56)
[2016-05-30] MEDS: PANTOPRAZOLE 40 MG/10 ML VIAL IV SCH (08:56)
[2016-05-30] MEDS: ENTACAPONE 200 MG TAB PO SCH (08:58)
[2016-05-30] MEDS: CARBIDOPA-LEVODOPA 25-100 MG 1 EACH TAB PO SCH (08:58)
[2016-05-30 09:10] VITALS: RESP 14
--- NOTE | 2016-05-30 09:40 | CDI ---
In responding to this query, please exercise your independent professional judgment. The [facility] Coding Staff and Clinical Documentation Specialists appreciate your assistance in clarifying documentation, maintaining compliance with coding guidelines, accurately documenting patients condition and capturing severity of illness. The fact that a question is asked does not imply that any particular answer is desired or expected. Communication forms are a method of clarifying documentation and are not made part of the Legal Health Record. Thank you in advance for your clarification. Last Revision, July 2015 Fiorella Del Angel [address] [facility] [place] [address] Documentation Clarification Form Date: 05/30/2016 9:13:00 AM From: Misael Joshi, RN, BSN, CDI Admit Date: 05/28/2016 2:21:00 PM Patient Name: Paige Umaña Visit Number: [id number] Dr. Becca Corbin: "Acute Upper GI bleed with coffee ground emesis" is documented in your progress notes. Patient history/risk factors: 85 yo female with history of PUD, hiatal hernia, GERD and dysphagia Clinical Indicators: EGD findings: moderately sized hiatal hernia with no definite esophagitis, minimal antral gastritis but no ulcers or gastric outlet obstruction Labs: Hgb: 12.0-6.9, Hct: 36.5-21.5, +FOB Vital Signs: 160/90, 117, 18, 98.1, 94% RA Treatment: Medication: Carafate, Phenergan, Iron Infusions Consults: GI Other treatment: serial H&H's, no coffee/caffeine/cola, bland diet In your professional opinion, can you please clarify the possible underlying cause of GI bleed if known? * Antral Gastritis * PUD Other, please specify Unable to determine Please document in your progress notes and discharge summary in order to capture severity of illness and risk of mortality. Include clinical findings that support your diagnosis. FYI: Press F11 to launch patient chart Place X here if this finding has no clinical significance, is not applicable or if you are not able to provide any additional documentation. MTDD
--- NOTE | 2016-05-30 10:31 | P.PN ---
Subjective Principal diagnosis: coffee ground emesis/ GI bleed 85-year-old female with a history of cerebral palsy, functional quadriparesis, multiple admissions for coffee ground emesis this post EGD evaluation without evidence of peptic ulcer disease with large hiatal hernia suspect Darryl erosions. No recurrence of coffee-ground emesis. Tolerating diet. Afebrile. Hemoglobin 9.1. Objective - Vital Signs Vital signs: Vital Signs Temp 97.1 F L 05/30/16 06:28 Pulse 90 05/30/16 08:00 Resp 14 05/30/16 08:00 BP 135/60 05/30/16 06:28 Pulse Ox 97 05/30/16 06:28 Intake & Output 05/29/16 05/30/16 05/30/16 18:59 06:59 18:59 Intake Total 580 900 118 Balance 580 900 118 Intake: IV 280 900 0.9% NaCl with KCl 20 Meq 900 /l 1,000 ml @ 75 mls/hr IV .[id number] NOHEMY Rx#: [id number] Sodium Chloride 0.9% 1, 180 000 ml @ 90 mls/hr IV . [id number] NOHEMY Rx#:[id number] Intake, IV Titration 300 Amount Potassium Chloride 10 meq 200 In Water For Injection 1 100ml.bag @ 100 mls/hr IVPB Q1H NOHEMY Rx#: [id number] Sodium Ferric Gluconat- 100 Sucrose 125 mg In Sodium Chloride 0.9% 100 ml @ 100 mls/hr IVPB DAILY NOHEMY Rx#:[id number] Oral 118 Other: Voiding Method Diaper Diaper Diaper Incontinent Incontinent Incontinent # Voids 2 1 # Bowel Movements 1 1 - Exam General appearance: The patient is alert, oriented, in no acute distress. HET: Cerebral palsy. Head is normocephalic and atraumatic with tilted contracture to the right side. Pupils are equal and reactive. Oropharynx is clear without lesions. Neck: Supple without lymphadenopathy. Trachea midline. Heart: S1 S2. Regular rate and rhythm. Lungs: No crackles or wheezes are heard. Abdomen: Soft, nontender, nondistended with bowel sounds. No peritoneal signs. No palpable organomegaly or masses. Extremities: Normal skin color and turgor. No cyanosis, rash, ulceration, clubbing, or edema. Radial and pedal pulses are 2/4 bilaterally. Neurological: No focal deficits. Strength and sensation are grossly intact. - Labs CBC & Chem 7: 05/30/16 06:14 05/30/16 06:14 Labs: Abnormal Lab Results - Last 24 Hours (Table) 05/29/16 05/29/16 05/30/16 Range/Units 15:02 16:56 06:14 WBC 12.5 H (3.8-10.6) k/uL RBC (3.80-5.40) m/uL Hgb (11.4-16.0) gm/dL Hct (34.0-46.0) % Neutrophils # 8.6 H (1.3-7.7) k/uL Potassium 3.1 L (3.5-5.1) mmol/L Chloride 113 H (98-107) mmol/L Carbon Dioxide 18 L (22-30) mmol/L Creatinine 0.50 L (0.52-1.04) mg/dL Calcium 7.6 L (8.4-10.2) mg/dL 05/30/16 Range/Units 06:14 WBC 11.2 H (3.8-10.6) k/uL RBC 3.06 L (3.80-5.40) m/uL Hgb 9.1 L D (11.4-16.0) gm/dL Hct 29.2 L (34.0-46.0) % Neutrophils # 8.3 H (1.3-7.7) k/uL Potassium (3.5-5.1) mmol/L Chloride (98-107) mmol/L Carbon Dioxide (22-30) mmol/L Creatinine (0.52-1.04) mg/dL Calcium (8.4-10.2) mg/dL Assessment and Plan (1) Coffee ground emesis Narrative/Plan: Status post EGD suspect coffee-ground emesis from Darryl erosions from large hiatal hernia. Status: Acute (2) Hiatal hernia Status: Acute (3) Patient is Mormon Status: Chronic Plan: Supportive measures with PPI and Carafate. We'll follow as needed. Monitor CBC closely. Assessment and plan a care discussed with Dr. Perry.
--- NOTE | 2016-05-30 15:25 | DS ---
DATE OF ADMISSION: 05/28/2016 DATE OF DISCHARGE: DATE OF SERVICE: 05/30/2016 FINAL DIAGNOSES: 1. Acute upper gastrointestinal bleeding with coffee-ground emesis with acute blood loss anemia, possibly antral gastritis. 2. Significant hiatal hernia and degenerative joint disease with no evidence of active bleeding. 3. Relative hypotension secondary to acute blood loss anemia. 4. Iron deficiency. 5. Hypokalemia, present on admission. 6. Dementia. 7. Confucianism. 8. Multiple cerebrovascular accidents and contractures. 9. Gait dysfunction. 10. Functional quadriplegia. 11. History of gastroesophageal reflux disease. 12. History of gastrointestinal bleed previously. 13. Hyperlipidemia. 14. Hypertension. 15. History of degenerative joint disease. 16. History of cerebral palsy with contractures. 17. History of dysphagia. 18. History of anxiety, depression. 19. NO CODE, NO CPR, NO VENT. DISCHARGE DISPOSITION: Patient will be transferred in a stable condition with guarded prognosis back to [facility]. Total time taken is 35 minutes. HISTORY OF PRESENT ILLNESS: This 85-year-old woman with a past medical history of multiple medical problems was admitted with coffee-ground emesis and gastrointestinal bleed and hemoglobin went down to 7, but stabilized subsequently. Patient given IV iron. The patient is Confucianism. No transfusion was given. Otherwise, treated symptomatically. EGD showed findings of hiatal hernias and antral gastritis. No active bleeding or peptic ulcer disease was noted. Treated symptomatically. On exam, vitals are stable. CARDIOVASCULAR SYSTEM: S1, S2 muffled. ABDOMEN: Soft. NERVOUS SYSTEM: Back to baseline. DISCHARGE ADVICE: 1. Diet is cardiac, soft, bland, no coffee, no tea, no pop, no milk. 2. Follow up with Dr. Brizuela in 2 to 3 days. 3. Follow up with Dr. Perry in 2 weeks. MEDICATIONS: 1. Phenergan 12.5 q.6 p.r.n. 2. Albuterol 2.5 q.i.d. and p.r.n. 3. Carbidopa L-dopa Entacapone 1 tablet p.o. b.i.d. 4. Valium 7.5 mg q.h.s. 5. Colace 100 mg b.i.d. p.r.n. 6. Ensure 1 p.o. b.i.d. 7. Comtan 200 mg b.i.d. 8. Hold iron sulfate for now. 9. [place] 7.5 mg q.8 p.r.n. 10. Protonix 40 mg p.o. b.i.d. 11. Pravachol 20 mg q.h.s. 12. Senna 17.2 q.h.s. 13. Carafate 1 gram before meals and at bedtime. CBC, BMP in 2 to 3 days. Continue monitoring. Once again, the patient is being discharged in stable condition with guarded prognosis. The patient is NO CODE at this time. Further recommendations to follow.
[2016-05-30 15:30] VITALS: BP 95/65; PULSE 82; TEMP 97.8
== END 2016-05-30 17:11 | DRG 377 ==
LOC: EC 20:03 → 5MS5E 23:45 → 6SEL 05-28 03:07 → OBSVTOIN 05-28 14:21
PROVIDERS: ADMIT Hospitalist; ATTEND Hospitalist
PROC: 0DJ08ZZ Inspection of Upper Intestinal Tract, Via Natural or Artificial Opening Endoscopic (ICD-10-PCS; principal; 2016-05-29 08:55)
DX: K29.61 Other gastritis with bleeding (principal); R53.2 Functional quadriplegia; I95.9 Hypotension, unspecified; D62 Acute posthemorrhagic anemia; R13.10 Dysphagia, unspecified; M41.9 Scoliosis, unspecified; F03.90 Unspecified dementia, unspecified severity, without behavioral disturbance, psychotic disturbance, mood disturbance, and anxiety; E87.6 Hypokalemia; K92.0 Hematemesis; Z66 Do not resuscitate; K44.9 Diaphragmatic hernia without obstruction or gangrene; I10 Essential (primary) hypertension; K21.0 Gastro-esophageal reflux disease with esophagitis; E78.5 Hyperlipidemia, unspecified; M62.49 Contracture of muscle, multiple sites; G80.9 Cerebral palsy, unspecified; F41.9 Anxiety disorder, unspecified; F32.9 Major depressive disorder, single episode, unspecified; R26.9 Unspecified abnormalities of gait and mobility; H35.30 Unspecified macular degeneration; K59.00 Constipation, unspecified; R32 Unspecified urinary incontinence; R53.1 Weakness; M19.90 Unspecified osteoarthritis, unspecified site; R05 Cough; Z88.6 Allergy status to analgesic agent; Z88.8 Allergy status to other drugs, medicaments and biological substances; Z87.11 Personal history of peptic ulcer disease; Z87.19 Personal history of other diseases of the digestive system; Z87.81 Personal history of (healed) traumatic fracture; Z79.891 Long term (current) use of opiate analgesic; Z79.899 Other long term (current) drug therapy; Z86.73 Personal history of transient ischemic attack (TIA), and cerebral infarction without residual deficits; Z82.0 Family history of epilepsy and other diseases of the nervous system
CPT/HCPCS: 36415; 43235; 71010; 74000; 80048; 80053; 81001; 82150; 82272; 83540; 83550; 83690; 84132; 85025; 93005; 96360; 96361; 96375; 96376; 99153; 99285